=== PATIENT | male | born 1950 | race Caucasian/White ===

== ENCOUNTER 2016-06-16 12:24 | Emergency (ER) | payer OTHER ==
[2016-06-16 13:05] VITALS: BP 127/71; PULSE 62; TEMP 98.1; BMI 33.9
--- NOTE | 2016-06-16 13:25 | PDOC ---
History of Present Illness - General Chief Complaint: Non EmpBld/Body Flud Exposure Stated Complaint: EXPOSURE TO TB Time Seen by Provider: 06/16/16 13:05 History Source: Patient - History of Present Illness Associated Symptoms: denies: cough, fever/chills, shortness of breath Past History - Past Medical History Allergies/Adverse Reactions: Allergies Allergy/AdvReac Type Severity Reaction Status Date / Time No Known Allergies Allergy Verified 06/16/16 13:02 Cardiac Disorders: Yes Diabetes: Yes HTN: Yes - Surgical History Cardiac Surgery: Yes (STENT X 2) - Immunization History Immunization Up to Date: Yes - Psycho/Social/Smoking Cessation Hx Anxiety: No Suicidal Ideation: No Smoking History: Never smoked Have you smoked in the past 12 months: No Information on smoking cessation initiated: No Hx Alcohol Use: No Drug/Substance Use Hx: No Substance Use Type: None Review of Systems - Review of Systems Constitutional: No: Chills, Fever, Night Sweats, Unexplained wgt Loss Respiratory: No: Cough, Shortness of Breath, Wheezing Cardiac (ROS): No: Chest Pain *Physical Exam - Vital Signs Last Vital Signs Temp Pulse Resp BP Pulse Ox 98.1 F 62 20 127/71 97 06/16/16 13:02 06/16/16 13:02 06/16/16 13:02 06/16/16 13:02 06/16/16 13:02 - Physical Exam General Appearance: Yes: Appropriately Dressed. No: Apparent Distress HEENT: positive: Normal Voice Neck: positive: Supple. negative: Lymphadenopathy (R), Lymphadenopathy (L) Respiratory/Chest: positive: Lungs Clear, Normal Breath Sounds. negative: Respiratory Distress Cardiovascular: positive: Regular Rate, S1, S2 Integumentary: positive: Dry, Warm Neurologic: positive: Fully Oriented, Alert, Normal Mood/Affect ED Treatment Course - RADIOLOGY Radiology Studies Ordered: Category Date Time Status CHEST PA & LAT [RAD] Stat Radiology 06/16/16 13:18 Ordered Medical Decision Making - Medical Decision Making 06/16/16 13:22 65-year-old male here for TB testing as was exposed to coworker who was recently diagnosed with TB as per patient. Denies any symptoms at this time, no cough, hemoptysis, shortness of breath, night sweats or weight loss. States his other coworkers are also pts today as they have also been exposed. Pt well tano and stable w/ unremarkable exam. Pt informed that he will need PPD testing which is not routinely performed in ED and that he will need to follow up with his PMD for PPD placement and subsequent reading. Will do CXR today r/o active disease. 06/16/16 13:25 06/16/16 13:56 XR negative. Pt discharged with instructions to immediately f/u with PMD for PPD testing *DC/Admit/Observation/Transfer Diagnosis at time of Disposition: Exposure to TB - Discharge Dispostion Disposition: HOME Condition at time of disposition: Good - Referrals Referrals: Felix Hickman MD [Primary Care Provider] - - Patient Instructions Additional Instructions: Please follow up with PMD for PPD testing. Your CXR was negative today - Post Discharge Activity Work/School Note: Back to Work
== END 2016-06-16 14:00 | disposition home or self-care (01) ==
LOC: JERFT 12:24
DX: Z20.1 Contact with and (suspected) exposure to tuberculosis (principal); I10 Essential (primary) hypertension; E11.9 Type 2 diabetes mellitus without complications; Z95.5 Presence of coronary angioplasty implant and graft
CPT/HCPCS: 71020-TC; 99281-25

== ENCOUNTER 2016-07-09 08:11 | Inpatient (IN) | payer OTHER, MEDICARE ==
[2016-07-09 09:03] LABS: URINE APPEARANCE CLEAR; URINE BILIRUBIN NEGATIVE (NEGATIVE); URINE COLOR YELLOW; URINE GLUCOSE (UA) 3+ (NEGATIVE); URINE KETONE 1+ (NEGATIVE); URINE NITRITE POSITIVE (NEGATIVE); URINE UROBILINOGEN 2.0 E.U/dl E.U./dl (0.2-1.0)
[2016-07-09] MEDS ORDERED: SODIUM CHLORIDE 1,000 ML IV STA (09:05)
[2016-07-09 09:07] LABS: URINE BLOOD 2+ (NEGATIVE); URINE LEUK ESTERASE TRACE (NEGATIVE); URINE PROTEIN 1+ (NEGATIVE)
--- NOTE | 2016-07-09 09:07 | PDOC ---
History of Present Illness - General Chief Complaint: Urinary Problem Stated Complaint: TROUBLE URINATING Time Seen by Provider: 07/09/16 08:37 History Source: Patient - History of Present Illness Timing/Duration: reports: constant Past History - Past Medical History Allergies/Adverse Reactions: Allergies Allergy/AdvReac Type Severity Reaction Status Date / Time No Known Allergies Allergy Verified 07/09/16 08:16 Home Medications: Ambulatory Orders Metoprolol Tartrate [Lopressor] 50 mg PO BID 07/09/16 Prasugrel HCl [Effient] 10 mg PO DAILY 07/09/16 Simvastatin [Zocor -] 40 mg PO HS 07/09/16 Sitagliptin Phos/Metformin HCl [Janumet Xr 50-1,000 mg Tablet] 1 each PO DAILY 07/09/16 Cardiac Disorders: Yes (3 stents) Diabetes: Yes HTN: Yes - Surgical History Cardiac Surgery: Yes (STENT X 3) Cholecystectomy: Yes - Immunization History Immunization Up to Date: Yes - Psycho/Social/Smoking Cessation Hx Anxiety: No Suicidal Ideation: No Smoking History: Never smoked Have you smoked in the past 12 months: No Information on smoking cessation initiated: No Hx Alcohol Use: No Drug/Substance Use Hx: No Substance Use Type: None Review of Systems - Review of Systems Constitutional: No: Chills, Fever : Yes: Dysuria. No: Flank Pain, Hematuria *Physical Exam - Vital Signs Last Vital Signs Temp Pulse Resp BP Pulse Ox 98.2 F 82 18 161/101 96 07/09/16 08:14 07/09/16 08:14 07/09/16 08:14 07/09/16 08:14 07/09/16 08:14 - Physical Exam General Appearance: Yes: Appropriately Dressed. No: Apparent Distress HEENT: positive: Normal Voice Neck: positive: Supple Respiratory/Chest: negative: Respiratory Distress Gastrointestinal/Abdominal: positive: Soft. negative: Tender Musculoskeletal: negative: CVA Tenderness Integumentary: positive: Dry, Warm Neurologic: positive: Fully Oriented, Alert, Normal Mood/Affect ED Treatment Course - LABORATORY CBC & Chemistry Diagram: 07/09/16 08:54 07/09/16 08:54 Medical Decision Making - Medical Decision Making 07/09/16 09:06 65-year-old male, history of [id number] diabetes, CAD with 3 stents, here with dysuria 3 days. Patient states every time he urinates it pillai. Pt also reports subjective fever. No hematuria, n/v. No hematuria, flank pain, nausea, vomiting, fever or chills. No history of renal stones. No history of UTI in the past. See exam Dysuria R/o uti, less likely renal stone Stable Exam unremarkable -ua/cx pending 07/09/16 09:49 07/09/16 10:17 Wbc 22 w/ +uti on labs. Dose of ceftriaxone in progress. Will discuss dispo w/ ED attg 07/09/16 12:23 CT neg for pyelo. Case d/w hospitalist and pt admitted to obs *DC/Admit/Observation/Transfer Diagnosis at time of Disposition: UTI (urinary tract infection) Qualifiers: Urinary tract infection type: acute cystitis Hematuria presence: without hematuria Qualified Code(s): N30.00 - Acute cystitis without hematuria - Discharge Dispostion Disposition: HOME Condition at time of disposition: Stable Admit: Yes - Referrals Referrals: Felix Hickman MD [Primary Care Provider] -
[2016-07-09 09:10] LABS: URINE BACTERIA MANY /hpf (NONE SEEN); URINE MUCUS RARE; URINE RBC 3 /hpf (0-3); URINE WBC 23 /hpf (3-5); YEAST FEW
[2016-07-09] MEDS ORDERED: CEFTRIAXONE 1 GM in DEXTROSE 5%-WATER - 50 ML IVPB ONE (09:15)
[2016-07-09 09:16] LABS: MCH 28.8 pg (25.7-33.7); MCHC 33.7 g/dl (32.0-35.9); MEAN CELL VOLUME 85.5 fl (80-96); MEAN PLT VOLUME 9.9 fl (7.5-11.1); PLATELET COUNT 146 K/MM3 (134-434); WHITE BLOOD COUNT 22.5 K/mm3 (4.0-10.0)
[2016-07-09] MEDS ORDERED: CEFTRIAXONE 50 ML ONE (09:18)
[2016-07-09 09:41] LABS: ALBUMIN 3.6 g/dl (3.4-5.0); ALK PHOS 103 U/L (45-117); ANION GAP 12 (8-16); BILIRUBIN,TOTAL 1.8 mg/dL (0.2-1.0); CALCIUM 8.7 mg/dL (8.5-10.1); CO2 24 mmol/L (21-32); CREATININE 1.1 mg/dL (0.7-1.3); GLUCOSE,RANDOM 264 mg/dL (74-106); SGOT/AST 16 U/L (15-37); SGPT/ALT 22 U/L (12-78); TOT PROT 7.2 g/dl (6.4-8.2)
[2016-07-09] MEDS ORDERED: PATIENT'S OWN MEDICATION (NON-FORMULARY) (Sitagliptin Phos/Metformin Hcl [Janumet Xr 50-1, PO SCH (12:30)
[2016-07-09] MEDS ORDERED: METOCLOPRAMIDE HCL INJECTION 10 MG/2 ML VIAL IVPB ONE (12:49)
--- NOTE | 2016-07-09 13:13 | ED.PROV ---
Physicial Exam I saw and examined the patient. - Vital Signs Last Vital Signs Temp Pulse Resp BP Pulse Ox 98.2 F 82 18 161/101 96 07/09/16 08:14 07/09/16 08:14 07/09/16 08:14 07/09/16 08:14 07/09/16 08:14 Critical Care Time/MDM Note - Medical Decision Making Note: 07/09/16 13:12 The patient was seen and evaluated in conjunction with SHASTA Edward under my direct supervision, ancillary studies were reviewed. I independently interviewed and evaluated the patient and I agree with the plan as outlined by SHASTA Edward 07/09/16 18:27
[2016-07-09] MEDS ORDERED: METOCLOPRAMIDE HCL INJECTION 10 MG/2 ML VIAL ONE (13:25)
--- NOTE | 2016-07-09 13:27 | HP ---
CHIEF COMPLAINT: PCP: HISTORY OF PRESENT ILLNESS: 65 year old male presented to the emergency department c/o 3 day history of dysuria, fever and chills. Pain 7/10 during urination . No prior episodes of pain like this in the past. No prior history of UTI or prostate problems. Recent Travel:NO PAST MEDICAL HISTORY: DM HTN HYperlipidemia CAD - most recent cath 4 years ago, stents were placed. No report available . PAST SURGICAL HISTORY: Cholecystectomy Screening colonoscopy Social History: Smoking:NO Alcohol:NO Drugs: NO Family History: Father from [place] at the age of 52 Allergies No Known Allergies Allergy (Verified 07/09/16 08:16) HOME MEDICATIONS: Home Medications Medication Instructions Recorded Metoprolol Tartrate [Lopressor] 50 mg PO BID 07/09/16 Prasugrel HCl [Effient] 10 mg PO DAILY 07/09/16 Simvastatin [Zocor -] 40 mg PO HS 07/09/16 Sitagliptin Phos/Metformin HCl 1 each PO DAILY 07/09/16 [Janumet Xr 50-1,000 mg Tablet] REVIEW OF SYSTEMS CONSTITUTIONAL: Absent: loss of appetite, weight change HEENT: Absent: rhinorrhea, nasal congestion, throat pain, throat swelling, difficulty swallowing, mouth swelling, ear pain, eye pain, visual changes CARDIOVASCULAR: Absent: chest pain, syncope, palpitations, irregular heart rate, lightheadedness , peripheral edema RESPIRATORY: Absent: cough, shortness of breath, dyspnea with exertion, orthopnea, wheezing, stridor, hemoptysis GASTROINTESTINAL: Absent: abdominal pain, abdominal distension, nausea, vomiting, diarrhea, constipation, melena, hematochezia GENITOURINARY: PRESENT : dysuria, frequency, urgency, hesitancy, MUSCULOSKELETAL: Absent: myalgia, arthralgia, joint swelling, back pain, neck pain SKIN: Absent: rash, itching, pallor HEMATOLOGIC/IMMUNOLOGIC: Absent: easy bleeding, easy bruising, lymphadenopathy, frequent infections ENDOCRINE: Absent: unexplained weight gain, unexplained weight loss, heat intolerance, cold intolerance NEUROLOGIC: Absent: headache, focal weakness or paresthesias, dizziness, unsteady gait, seizure, mental status changes, bladder or bowel incontinence PSYCHIATRIC: Absent: anxiety, depression, suicidal or homicidal ideation, hallucinations. PHYSICAL EXAMINATION Vital Signs - 24 hr 07/09/16 08:14 Temperature 98.2 F Pulse Rate 82 Respiratory 18 Rate Blood Pressure 161/101 O2 Sat by Pulse 96 Oximetry (%) GENERAL: Awake, alert, and fully oriented, in no acute distress. HEAD: Normal with no signs of trauma. EYES: Pupils equal, round and reactive to light, extraocular movements intact, sclera anicteric, conjunctiva clear. No lid lag. EARS, NOSE, THROAT: Ears normal, nares patent. Moist mucous membranes. NECK: Normal range of motion, supple without lymphadenopathy, JVD, or masses. LUNGS: Breath sounds equal, clear to auscultation bilaterally. No wheezes, and no crackles. No accessory muscle use. HEART: Regular rate and rhythm, normal S1 and S2 without murmur, rub or gallop. ABDOMEN: Soft, nontender, not distended, normoactive bowel sounds, no guarding, no rebound, no masses. MUSCULOSKELETAL: No CVA tenderness. UPPER EXTREMITIES: 2+ pulses, warm, well-perfused. No cyanosis. LOWER EXTREMITIES: 2+ pulses, warm, well-perfused. No calf tenderness. No peripheral edema. NEUROLOGICAL: Cranial nerves II-XII intact. Normal speech. PSYCHIATRIC: Cooperative. Good eye contact. Appropriate mood and affect. SKIN: Warm, dry, normal turgor, no rashes or lesions noted. Laboratory Results - last 24 hr 07/09/16 07/09/16 07/09/16 08:26 08:54 08:54 WBC 22.5 H RBC 5.32 Hgb 15.4 Hct 45.5 MCV 85.5 MCHC 33.7 RDW 13.0 Plt Count 146 MPV 9.9 Neutrophils % Tag Writer Lymphocytes % Tag Writer Monocytes % Tag Writer Eosinophils % Tag Writer Basophils % Tag Writer Sodium 134 L Potassium 3.6 Chloride 98 Carbon Dioxide 24 Anion Gap 12 BUN 12 Creatinine 1.1 Creat Clearance w eGFR > 60 Random Glucose 264 H Calcium 8.7 Total Bilirubin 1.8 H AST 16 ALT 22 Alkaline Phosphatase 103 Total Protein 7.2 Albumin 3.6 Urine Color Yellow Urine Appearance Clear Urine pH 5.0 Ur Specific [place] 1.025 Urine Protein 1+ H Urine Glucose (UA) 3+ H Urine Ketones 1+ H Urine Blood 2+ H Urine Nitrite Positive Urine Bilirubin Negative Urine Urobilinogen 2.0 e.u/dl Ur Leukocyte Esterase Trace H Urine RBC 3 Urine WBC 23 Urine Bacteria Many Urine Mucus Rare Urine Yeast Few CT abdomen showed no evidence of hydronephrosis or nephrolithiasis. ASSESSMENT/PLAN: 1. Acute cystitis- first episode. CT is negative for nephrolithiasis. Denies history of BPH. - IV rocephine - urine culture - IVF - check for postvoid residual / bladder scan 2. Suspected sepsis 2/ #1 3. Uncontrolled DM- -Insulin SS -Monitor BG - HB A1C 4. Mildly elevated bilirubin level - will repeat 5. Uncontrolled HTN - - reinstate home meds - stat dose of metoprolol - hydralazine prn for sbp > 165 DBP > 90 6. DVT PPX- Lovenox Visit type - Emergency Visit Emergency Visit: Yes ED Registration Date: 07/10/16 Care time: The patient presented to the Emergency Department on the above date and was hospitalized for further evaluation of their emergent condition. - New Patient This patient is new to me today: Yes Date on this admission: 08/01/16 - Critical Care Critical Care patient: No
[2016-07-09] MEDS ORDERED: ACETAMINOPHEN 325 MG TABLET (FP) ONE (13:35)
[2016-07-09] MEDS ORDERED: ACETAMINOPHEN 325 MG TABLET (FP) PO ONE (13:35)
[2016-07-09] MEDS: SODIUM CHLORIDE 1,000 ML IV SCH ×2 (13:44→21:42)
[2016-07-09 14:00] VITALS: BMI 34.1
[2016-07-09] MEDS ORDERED: METOPROLOL SUCCINATE 25 MG TAB.SR.24H (FP) PO STA (14:29)
[2016-07-09] MEDS ORDERED: hydrALAZINE HCL 20 MG/ML VIAL IVPUSH PRN (14:31)
[2016-07-09] MEDS ORDERED: METOPROLOL TARTRATE 25 MG TABLET (FP) PO ONE (15:15)
[2016-07-09] MEDS: INSULIN SLIDING SCALE (NOVOLOG) 1 VIAL SQ SCH (17:26)
[2016-07-09] MEDS: ACETAMINOPHEN 325 MG TABLET (FP) PO PRN (18:57)
[2016-07-09] MEDS: PHENAZOPYRIDINE HCL 100 MG TABLET (FP) PO SCH (18:58)
[2016-07-09] MEDS: ATORVASTATIN CA 20 MG TABLET (FP) PO SCH (21:39)
[2016-07-09] MEDS: METOPROLOL TARTRATE 50 MG TABLET (FP) PO SCH (21:39)
--- NOTE | 2016-07-09 23:58 | HOSP ---
Subjective - Review of Symptoms Events since last encounter: RN called to inform that patient has post void urine is > 300 Patient seen and examined Denies pain, sob , chest pain , nausea vomiting 07/09/16 07/09/16 07/09/16 18:00 20:27 21:42 Temperature 100.0 F H 98.7 F 99.6 F Pulse Rate 88 72 68 Pulse Rate [ Right] Respiratory 18 16 18 Rate Blood Pressure 142/85 139/73 137/76 Blood Pressure [Right Arm] O2 Sat by Pulse Oximetry (%) CVS s1s2 normal chest b/l air entry present abd : soft, non tender, supra pubic area dull to percuss. Bladder palpable. plan ; patient catheterized ( post catheterization 400 ml urine came stat ) start flomax give 200ml of bolus and continue with 100ml/hr continue with antibiotics. Physical Examination Vital Signs: Vital Signs Temperature 99.6 F 07/09/16 21:42 Pulse Rate 68 07/09/16 21:42 Respiratory Rate 18 07/09/16 21:42 Blood Pressure 137/76 07/09/16 21:42 O2 Sat by Pulse Oximetry (%) 96 07/09/16 13:35 Visit type - Emergency Visit Emergency Visit: Yes ED Registration Date: 07/09/16 Care time: The patient presented to the Emergency Department on the above date and was hospitalized for further evaluation of their emergent condition. - New Patient This patient is new to me today: Yes Date on this admission: 07/09/16 - Critical Care Critical Care patient: No
[2016-07-09] MEDS ORDERED: SODIUM CHLORIDE 250 ML IV STA (23:59)
[2016-07-10] MEDS ORDERED: ACETAMINOPHEN 325 MG TABLET (FP) PO ONE
[2016-07-10] MEDS ORDERED: CEFTRIAXONE 1 GM in DEXTROSE 5%-WATER - 50 ML IVPB ONE (00:02)
[2016-07-10] MEDS ORDERED: cefTRIAXone 1 GM/50 ML BAG (PRE-DOCKED) IVPB ONE (00:15)
[2016-07-10] MEDS: TAMSULOSIN HCL 0.4 MG CAP.ER.24H (FP) PO SCH ×2 (00:23→08:19)
[2016-07-10] MEDS: SODIUM CHLORIDE 1,000 ML IV SCH ×2 (06:13→16:06)
[2016-07-10] MEDS: INSULIN SLIDING SCALE (NOVOLOG) 1 VIAL SQ SCH ×3 (06:14→17:17)
[2016-07-10] MEDS: sitaGLIPtin PHOSPHATE 50 MG TABLET PO SCH (06:14)
[2016-07-10] MEDS: ACETAMINOPHEN 325 MG TABLET (FP) PO PRN ×3 (08:04→23:43)
[2016-07-10 08:48] LABS: BASOPHIL 0.2 % (0-2.0); EOSINOPHIL 0.8 % (0-4.5); MCHC 33.7 g/dl (32.0-35.9); MEAN CELL VOLUME 86.1 fl (80-96); MEAN PLT VOLUME 10.2 fl (7.5-11.1); NEUTROPHILS 83.3 % (42.8-82.8); PLATELET COUNT 133 K/MM3 (134-434); RDW 12.8 % (11.9-15.9); WHITE BLOOD COUNT 12.9 K/mm3 (4.0-10.0)
[2016-07-10] MEDS ORDERED: PT OWN MED DRAWER 7, Y5N ONE (09:12)
[2016-07-10] MEDS: PHENAZOPYRIDINE HCL 100 MG TABLET (FP) PO SCH ×3 (09:14→18:41)
[2016-07-10] MEDS: METOPROLOL TARTRATE 50 MG TABLET (FP) PO SCH ×2 (09:14→22:08)
[2016-07-10] MEDS: PRASUGREL HCL 10 MG TAB PO SCH (09:15)
[2016-07-10] MEDS: cefTRIAXone 2 GM/100 ML BAG (PRE-DOCKED) IVPB SCH (09:16)
[2016-07-10] MEDS ORDERED: INSULIN (NOVOLOG) ASPART 100 UNITS/ML 10ML VIAL ONE (11:14)
--- NOTE | 2016-07-10 11:21 | PN ---
Physical Exam: SUBJECTIVE: Patient seen and examined. He complains of pain when he urinates, however he has a [place] catheter which was inserted last night for urinary retention. He denies chills, nausea, flank pain. He denies history of kidney stones, BPH, UTIs. OBJECTIVE: Vital Signs Period Temp Pulse Resp BP Sys/Abbott Pulse Ox Last 24 Hr 98.7 F-100.7 F 67-88 16-20 128-150/64-85 92-96 GENERAL: The patient is awake, alert, and fully oriented, in no acute distress. LUNGS: Breath sounds equal, clear to auscultation bilaterally, no wheezes, no crackles, no accessory muscle use. HEART: Regular rate and rhythm, S1, S2 without murmur, rub or gallop. ABDOMEN: Soft, nontender, nondistended, normoactive bowel sounds, no guarding, no rebound, no hepatosplenomegaly, no masses. EXTREMITIES: 2+ pulses, warm, well-perfused, no edema. Laboratory Results - last 24 hr 07/09/16 07/09/16 07/09/16 12:35 17:14 20:40 WBC RBC Hgb Hct MCV MCHC RDW Plt Count MPV Neutrophils % Lymphocytes % Monocytes % Eosinophils % Basophils % POC Glucometer 322 Hemoglobin A1c % 9.4 H Lactic Acid 1.439 07/10/16 07/10/16 07/10/16 05:48 07:15 10:46 WBC 12.9 H D RBC 4.52 Hgb 13.1 D Hct 38.9 MCV 86.1 MCHC 33.7 RDW 12.8 Plt Count 133 L MPV 10.2 Neutrophils % 83.3 H Lymphocytes % 8.1 Monocytes % 7.6 Eosinophils % 0.8 Basophils % 0.2 POC Glucometer 212 298 Hemoglobin A1c % Lactic Acid Active Medications Generic Name Dose Route Start Last Admin Trade Name Freq PRN Reason Stop Dose Admin Acetaminophen 650 mg 07/09/16 12:51 07/10/16 08:04 Tylenol - PO 650 mg Q6H PRN Administration MODERATE PAIN Atorvastatin Calcium 20 mg 07/09/16 22:00 07/09/16 21:39 Lipitor - PO 20 mg HS ROC Administration Ceftriaxone Sodium 2 gm 07/10/16 10:00 07/10/16 09:16 Rocephin 2gm Ivpb (Pre-Docked) IVPB 2 gm DAILY ROC Administration Protocol Hydralazine HCl 10 mg 07/09/16 14:31 Apresoline Injection - IVPUSH Q8H PRN HYPERTENSION Sodium Chloride 1,000 mls @ 100 mls/hr 07/09/16 12:45 07/10/16 06:13 Normal Saline - IV 100 mls/hr ASDIR ROC Administration Insulin Aspart 1 vial 07/09/16 16:30 07/10/16 11:19 Novolog Vial Sliding Scale - SQ 4 units TIDAC ROC Administration Protocol Metformin HCl 1,000 mg 07/10/16 07:00 07/10/16 06:14 Glucophage Xr - PO 1,000 mg DAILY@0700 ROC Administration Metoprolol Tartrate 50 mg 07/09/16 22:00 07/10/16 09:14 Lopressor - PO 50 mg BID ROC Administration Phenazopyridine HCl 100 mg 07/09/16 18:45 07/10/16 09:14 Pyridium - PO 100 mg PC ROC Administration Prasugrel 10 mg 07/10/16 10:00 07/10/16 09:15 Effient - PO 10 mg DAILY ROC Administration Sitagliptin Phosphate 50 mg 07/10/16 07:00 07/10/16 06:14 Januvia - PO 50 mg DAILY@0700 ROC Administration Tamsulosin HCl 0.4 mg 07/10/16 00:15 07/10/16 08:19 Flomax - PO 0.4 mg DAILY@0830 [facility] Administration ASSESSMENT/PLAN: This is a 65-year-old man with a history of CAD, type 2 DM, HTN, hyperlipidemia who presented with 3 days of fever, chills and dysuria. 1. Acute cystitis - Continue Rocephin, Pyridium, IV fluid - Follow-up urine culture 2. Urinary retention - Maintain [place] catheter - Continue Flomax - Urology consult 3. Uncontrolled type 2 diabetes mellitus - HgbA1c is 9.4 - Continue Metformin, Januvia, Novolog sliding scale 4. Hypertension, uncontrolled - Continue Lopressor 5. Hyperlipidemia - Continue Lipitor 6. CAD, history of stents - Continue Lopressor, Lipitor, Effient Problem List - Problems (1) Urinary retention Code(s): R33.9 - RETENTION OF URINE, UNSPECIFIED (2) CAD (coronary artery disease) Code(s): I25.10 - ATHSCL HEART DISEASE OF [place] CORONARY ARTERY W/O ANG PCTRS (3) Hyperlipidemia Code(s): E78.5 - HYPERLIPIDEMIA, UNSPECIFIED (4) Hypertension Code(s): I10 - ESSENTIAL (PRIMARY) HYPERTENSION (5) Type 2 diabetes mellitus Code(s): E11.9 - TYPE 2 DIABETES MELLITUS WITHOUT COMPLICATIONS Visit type - Emergency Visit Emergency Visit: Yes ED Registration Date: 07/10/16 Care time: The patient presented to the Emergency Department on the above date and was hospitalized for further evaluation of their emergent condition. - New Patient This patient is new to me today: Yes Date on this admission: 07/10/16 - Critical Care Critical Care patient: No - Discharge Referral Referred to [facility] Med P.C.: No
--- NOTE | 2016-07-10 15:56 | CONSULT ---
Consult Consult Specialty:: infectious diseases Reason for Consultation:: sepsis,uti - History of Present Illness Chief Complaint: not able to pass urine History of Present Illness: 65 year old male presented to the emergency department c/o 3 day history of dysuria, fever and chills. Pain 7/10 during urination . patient mentions that he was not hollie to pass urine properly for couple of days and then he had fever,denies hematuria or any other issues he had a prostate check up about 5 yrs back and he had everything normal patient currently has been placed on foleys catheter patient spiked to high grade fever and now has urine growing organism - History Source History Provided By: Patient, Family Member Limitations to Obtaining History: No Limitations - Alcohol/Substance Use Hx Alcohol Use: No - Smoking History Smoking history: Never smoked Have you smoked in the past 12 months: No Home Medications - Allergies Allergies/Adverse Reactions: Allergies Allergy/AdvReac Type Severity Reaction Status Date / Time No Known Allergies Allergy Verified 07/09/16 08:16 - Home Medications Home Medications: Ambulatory Orders Metoprolol Tartrate [Lopressor] 50 mg PO BID 07/09/16 Prasugrel HCl [Effient] 10 mg PO DAILY 07/09/16 Simvastatin [Zocor -] 40 mg PO HS 07/09/16 Sitagliptin Phos/Metformin HCl [Janumet Xr 50-1,000 mg Tablet] 1 each PO DAILY 07/09/16 Review of Systems - Review of Systems Constitutional: reports: Chills, Fever Eyes: reports: No Symptoms HENT: reports: No Symptoms Neck: reports: No Symptoms Cardiovascular: reports: No Symptoms Respiratory: reports: No Symptoms Gastrointestinal: reports: No Symptoms Genitourinary: reports: Burning, Dysuria, Urgency Musculoskeletal: reports: No Symptoms Integumentary: reports: No Symptoms Neurological: reports: No Symptoms Endocrine: reports: No Symptoms Hematology/Lymphatic: reports: No Symptoms Psychiatric: reports: No Symptoms Physical Exam Vital Signs: Vital Signs Temperature 101.2 F H 07/10/16 15:35 Pulse Rate 69 07/10/16 15:35 Respiratory Rate 20 07/10/16 15:35 Blood Pressure 133/77 07/10/16 15:35 O2 Sat by Pulse Oximetry (%) 94 L 07/10/16 09:00 Constitutional: Yes: Well Nourished, Obese Eyes: Yes: Conjunctiva Clear HENT: Yes: Atraumatic, Normocephalic Neck: Yes: Supple, Trachea Midline Cardiovascular: Yes: Regular Rate and Rhythm Respiratory: Yes: Regular, CTA Bilaterally Gastrointestinal: Yes: Normal Bowel Sounds, Soft Renal/: Yes: [place] Present, Incontinence Musculoskeletal: Yes: WNL Extremities: Yes: WNL Integumentary: Yes: WNL Neurological: Yes: Alert, Oriented Psychiatric: Yes: Alert, Oriented Imaging - Results Cat Scan: Report Reviewed, Image Reviewed Assessment/Plan after looking at patients history i have a very strong suspicion that the infection is coming from prostate and he might have prostatitis also. urology has evaluated the patient iman wait to see what urology says sepsis due to uti prostatitis urinary retention fever leukocytosis plan hydration will start patient on zosyn for now if patient contiues to spike fever will change to ertapenam close monitoring monitor wbc
[2016-07-10] MEDS: PIPERACILLIN/TAZOB 3.375 GM 50 ML IVPB SCH (17:18)
[2016-07-10] MEDS: ATORVASTATIN CA 20 MG TABLET (FP) PO SCH (22:08)
[2016-07-11] MEDS: PIPERACILLIN/TAZOB 3.375 GM 50 ML IVPB SCH ×2 (02:33→09:10)
[2016-07-11] MEDS: INSULIN SLIDING SCALE (NOVOLOG) 1 VIAL SQ SCH ×3 (06:24→17:48)
[2016-07-11] MEDS: sitaGLIPtin PHOSPHATE 50 MG TABLET PO SCH (06:24)
[2016-07-11] MEDS ORDERED: PT OWN MED DRAWER 7, Y5N ONE ×2 (07:48→09:07)
[2016-07-11] MEDS: ACETAMINOPHEN 325 MG TABLET (FP) PO PRN (08:26)
[2016-07-11] MEDS: TAMSULOSIN HCL 0.4 MG CAP.ER.24H (FP) PO SCH (08:28)
[2016-07-11] MEDS: PHENAZOPYRIDINE HCL 100 MG TABLET (FP) PO SCH ×3 (08:29→17:49)
[2016-07-11 08:39] LABS: BASOPHIL 0.4 % (0-2.0); MCH 29.2 pg (25.7-33.7); MCHC 34.1 g/dl (32.0-35.9); MEAN CELL VOLUME 85.7 fl (80-96); PLATELET COUNT 142 K/MM3 (134-434); RDW 12.9 % (11.9-15.9); WHITE BLOOD COUNT 8.1 K/mm3 (4.0-10.0)
[2016-07-11] MEDS: cefTRIAXone 2 GM/100 ML BAG (PRE-DOCKED) IVPB SCH (09:02)
[2016-07-11] MEDS: METOPROLOL TARTRATE 50 MG TABLET (FP) PO SCH ×2 (09:03→22:15)
[2016-07-11 09:05] LABS: CALCIUM 8.2 mg/dL (8.5-10.1)
--- NOTE | 2016-07-11 09:06 | CONSULT ---
Consult Consult Specialty:: urology Referred by:: medicine Reason for Consultation:: urinary retention - History of Present Illness Chief Complaint: urinary retention History of Present Illness: patient is a 65 yo male with poorly controlled diabetes who has been having worsening nocturia over several months. He was admitted with a UTI and was noted to have a large post void residual of 300 on US. [place] cath was placed. He denies prior history and no family history - History Source History Provided By: Patient Limitations to Obtaining History: No Limitations - Past Medical History Renal/: Yes: UTI - Alcohol/Substance Use Hx Alcohol Use: No - Smoking History Smoking history: Never smoked Have you smoked in the past 12 months: No Home Medications - Allergies Allergies/Adverse Reactions: Allergies Allergy/AdvReac Type Severity Reaction Status Date / Time No Known Allergies Allergy Verified 07/09/16 08:16 - Home Medications Home Medications: Ambulatory Orders Metoprolol Tartrate [Lopressor] 50 mg PO BID 07/09/16 Prasugrel HCl [Effient] 10 mg PO DAILY 07/09/16 Simvastatin [Zocor -] 40 mg PO HS 07/09/16 Sitagliptin Phos/Metformin HCl [Janumet Xr 50-1,000 mg Tablet] 1 each PO DAILY 07/09/16 Review of Systems - Review of Systems Genitourinary: reports: Burning, Frequency. denies: Flank Pain, Hematuria, Incontinence Physical Exam Vital Signs: Vital Signs Temperature 100.3 F H 07/11/16 06:00 Pulse Rate 71 07/11/16 06:00 Respiratory Rate 22 07/11/16 06:00 Blood Pressure 147/63 07/11/16 06:00 O2 Sat by Pulse Oximetry (%) 94 L 07/10/16 20:00 Gastrointestinal: Yes: WNL, Normal Bowel Sounds Renal/: Yes: [place] Present. No: Bladder Distention, CVA Tenderness - Left, CVA Tenderness - Right, Hematuria, Incontinence Labs: CBC, BMP 07/11/16 07:15 Problem List - Problems (1) Urinary retention Assessment/Plan: patient with high PVR and UTI. Flomax was started, recommend trial of void on . Continue flomax as outpatient. Likely some neurogenic component to his bladder dysfunction. Recommend better diabetic control. Thank you for this referral Code(s): R33.9 - RETENTION OF URINE, UNSPECIFIED
[2016-07-11] MEDS: PRASUGREL HCL 10 MG TAB PO SCH (09:09)
[2016-07-11 09:12] LABS: ALBUMIN 2.9 g/dl (3.4-5.0); BILIRUBIN,DIRECT 0.3 mg/dL (0.0-0.2); BILIRUBIN,TOTAL 0.6 mg/dL (0.2-1.0); CREATININE 0.9 mg/dL (0.7-1.3); TOT PROT 6.1 g/dl (6.4-8.2)
[2016-07-11] MEDS: IBUPROFEN 400 MG TABLET (FP) PO PRN ×2 (14:43→22:15)
[2016-07-11] MEDS: SODIUM CHLORIDE 1,000 ML IV SCH ×2 (14:53→14:55)
--- NOTE | 2016-07-11 15:11 | PN ---
Progress Note, Physician History of Present Illness: patient not feeling well still spiking hig fevers inspite of being on zosyn patient looks flushed - Current Medication List Current Medications: Active Medications Atorvastatin Calcium (Lipitor -) 20 mg PO HS [facility] Last Admin: 07/10/16 22:08 Dose: 20 mg Hydralazine HCl (Apresoline Injection -) 10 mg IVPUSH Q8H PRN PRN Reason: HYPERTENSION Sodium Chloride (Normal Saline -) 1,000 mls @ 100 mls/hr IV ASDIR [facility] Last Admin: 07/11/16 14:55 Dose: Not Given Ertapenem 1 gm/ Sodium (Chloride) 50 mls @ 50 mls/hr IVPB DAILY [facility] PRN Reason: Protocol Ibuprofen (Motrin -) 400 mg PO Q6H PRN PRN Reason: PAIN Last Admin: 07/11/16 14:43 Dose: 400 mg Insulin Aspart (Novolog Vial Sliding Scale -) 1 vial SQ TIDAC [facility] PRN Reason: Protocol Last Admin: 07/11/16 11:30 Dose: 4 units Metformin HCl (Glucophage Xr -) 1,000 mg PO BID [facility] Metoprolol Tartrate (Lopressor -) 50 mg PO BID [facility] Last Admin: 07/11/16 09:03 Dose: 50 mg Phenazopyridine HCl (Pyridium -) 100 mg PO [facility] Last Admin: 07/11/16 12:57 Dose: 100 mg Prasugrel (Effient -) 10 mg PO DAILY [facility] Last Admin: 07/11/16 09:09 Dose: 10 mg Sitagliptin Phosphate (Januvia -) 50 mg PO DAILY@0700 [facility] Last Admin: 07/11/16 06:24 Dose: 50 mg Tamsulosin HCl (Flomax -) 0.4 mg PO DAILY@0830 [facility] Last Admin: 07/11/16 08:28 Dose: 0.4 mg - Objective Vital Signs: Vital Signs Temperature 100.5 F H 07/11/16 10:00 Pulse Rate 72 07/11/16 10:00 Respiratory Rate 20 07/11/16 10:00 Blood Pressure 146/100 07/11/16 10:00 O2 Sat by Pulse Oximetry (%) 94 L 07/10/16 20:00 Constitutional: Yes: Mild Distress Cardiovascular: Yes: Regular Rate and Rhythm Respiratory: Yes: Regular, CTA Bilaterally Gastrointestinal: Yes: Normal Bowel Sounds, Soft Musculoskeletal: Yes: WNL Extremities: Yes: WNL Neurological: Yes: Alert, Oriented Psychiatric: Yes: Alert Labs: CBC, BMP 07/11/16 07:15 07/11/16 07:15 Assessment/Plan patient looking more sicker I am worried that the patient has probably ESBL and patient is breaking through zosyn patient spiked to 101.5 i am going to change abx sepsis due to uti prostatitis urinary retention fever leukocytosis plan hydration changed abx to ertapenam monitor very closely patient can become septic
--- NOTE | 2016-07-11 18:18 | PN ---
Physical Exam: SUBJECTIVE: Patient seen and examined. He is complaining of fever, chills. He denies abdominal pain now, no dysuria, urgency, frequency, diarrhea, nausea, vomiting, dizziness. OBJECTIVE: Vital Signs Period Temp Pulse Resp BP Sys/Abbott Pulse Ox Last 24 Hr 98.1 F-100.5 F 63-72 20-22 128-148/63-100 94 GENERAL: The patient is awake, alert, and fully oriented, in no acute distress. HEAD: Normal with no signs of trauma. EYES:extraocular movements intact, sclera anicteric, conjunctiva clear. ENT: oropharynx clear without exudates, moist mucous membranes. NECK: Trachea midline, full range of motion, supple. LUNGS: clear to auscultation bilaterally, no wheezes, no crackles, no accessory muscle use. HEART: Regular rate and rhythm, S1, S2 without murmur, rub or gallop. ABDOMEN: Obese, soft, nontender, nondistended, normoactive bowel sounds, no guarding, no rebound, no hepatosplenomegaly, no masses. EXTREMITIES: no edema. NEUROLOGICAL: Normal speech, no facial asymmetry, gait not observed. PSYCH: Normal mood, normal affect. SKIN: Warm, dry, normal turgor, no rashes or lesions noted Laboratory Results - last 24 hr 07/11/16 07/11/16 07/11/16 06:15 07:15 07:15 WBC 8.1 D RBC 4.46 Hgb 13.0 Hct 38.2 MCV 85.7 MCHC 34.1 RDW 12.9 Plt Count 142 MPV 10.0 Neutrophils % 76.0 Lymphocytes % 12.2 D Monocytes % 9.4 Eosinophils % 2.0 D Basophils % 0.4 Sodium 136 Potassium 3.6 Chloride 102 Carbon Dioxide 24 Anion Gap 10 BUN 10 Creatinine 0.9 POC Glucometer 206 Random Glucose 223 H Calcium 8.2 L Total Bilirubin 0.6 D Direct Bilirubin 0.3 H AST 26 D ALT 36 D Alkaline Phosphatase 111 Total Protein 6.1 L Albumin 2.9 L 07/11/16 07/11/16 10:58 17:12 WBC RBC Hgb Hct MCV MCHC RDW Plt Count MPV Neutrophils % Lymphocytes % Monocytes % Eosinophils % Basophils % Sodium Potassium Chloride Carbon Dioxide Anion Gap BUN Creatinine POC Glucometer 299 218 Random Glucose Calcium Total Bilirubin Direct Bilirubin AST ALT Alkaline Phosphatase Total Protein Albumin Active Medications Generic Name Dose Route Start Last Admin Trade Name Freq PRN Reason Stop Dose Admin Atorvastatin Calcium 20 mg 07/09/16 22:00 07/10/16 22:08 Lipitor - PO 20 mg HS [facility] Administration Hydralazine HCl 10 mg 07/09/16 14:31 Apresoline Injection - IVPUSH Q8H PRN HYPERTENSION Sodium Chloride 1,000 mls @ 100 mls/hr 07/09/16 12:45 07/11/16 14:55 Normal Saline - IV Not Given ASDIR [facility] Ertapenem 1 gm/ Sodium 50 mls @ 50 mls/hr 07/11/16 16:00 Chloride IVPB DAILY [facility] Protocol Ibuprofen 400 mg 07/11/16 14:11 07/11/16 14:43 Motrin - PO 400 mg Q6H PRN Administration PAIN Insulin Aspart 1 vial 07/09/16 16:30 07/11/16 17:48 Novolog Vial Sliding Scale - SQ 2 units TIDAC [facility] Administration Protocol Metformin HCl 1,000 mg 07/11/16 16:30 07/11/16 17:48 Glucophage Xr - PO 1,000 mg BIDAC [facility] Administration Metoprolol Tartrate 50 mg 07/09/16 22:00 07/11/16 09:03 Lopressor - PO 50 mg BID [facility] Administration Phenazopyridine HCl 100 mg 07/09/16 18:45 07/11/16 17:49 Pyridium - PO 100 mg PC [facility] Administration Prasugrel 10 mg 07/10/16 10:00 07/11/16 09:09 Effient - PO 10 mg DAILY [facility] Administration Sitagliptin Phosphate 50 mg 07/10/16 07:00 07/11/16 06:24 Januvia - PO 50 mg DAILY@0700 [facility] Administration Tamsulosin HCl 0.4 mg 07/10/16 00:15 07/11/16 08:28 Flomax - PO 0.4 mg DAILY@0830 [facility] Administration ASSESSMENT/PLAN: This is a 65-year-old man with a history of CAD, type 2 DM, HTN, hyperlipidemia who presented with 3 days of fever, chills and dysuria. Acute cystitis, possible prostatitis -cont Ertapenem, monitor VS for sepsis -cont IVF -cont Pyridium -Urine culture: E.Coli Urinary retention -[place] catheter removed -Continue Flomax -Urology consultation Uncontrolled type 2 diabetes mellitus - HgbA1c is 9.4 - Metformin changed to BID, Januvia changed to BID -cont Novolog sliding scale Hypertension - Continue Lopressor Hyperlipidemia - Continue Lipitor 20 mg HS CAD - Continue Lopressor, Lipitor, Effient F/E/N: NS/no/Regular DVT PPX: -SCDs Disposition: Med-Surg Problem List - Problems (1) UTI (urinary tract infection) Code(s): N39.0 - URINARY TRACT INFECTION, SITE NOT SPECIFIED Qualifiers: Urinary tract infection type: acute cystitis Hematuria presence: without hematuria Qualified Code(s): N30.00 - Acute cystitis without hematuria (2) Urinary retention Code(s): R33.9 - RETENTION OF URINE, UNSPECIFIED (3) CAD (coronary artery disease) Code(s): I25.10 - ATHSCL HEART DISEASE OF [place] CORONARY ARTERY W/O ANG PCTRS (4) Hyperlipidemia Code(s): E78.5 - HYPERLIPIDEMIA, UNSPECIFIED (5) Hypertension Code(s): I10 - ESSENTIAL (PRIMARY) HYPERTENSION (6) Type 2 diabetes mellitus Code(s): E11.9 - TYPE 2 DIABETES MELLITUS WITHOUT COMPLICATIONS Visit type - Emergency Visit Emergency Visit: Yes ED Registration Date: 07/10/16 Care time: The patient presented to the Emergency Department on the above date and was hospitalized for further evaluation of their emergent condition. - New Patient This patient is new to me today: Yes Date on this admission: 07/11/16 - Critical Care Critical Care patient: No - Discharge Referral Referred to [facility] Med P.C.: No
[2016-07-11] MEDS: ERTAPENEM SODIUM 1 GM in SODIUM CHLORIDE 50 ML IVPB SCH (18:19)
--- NOTE | 2016-07-11 18:39 | PN ---
Teaching Attending Note Name of Resident: Rupali Gonsalves ATTENDING PHYSICIAN STATEMENT I saw and evaluated the patient. I reviewed the resident's note and discussed the case with the resident. I agree with the resident's findings and plan as documented. SUBJECTIVE: The patient feels better. Tijer[place] has been removed and he is voiding without difficulty. OBJECTIVE: Vital Signs Period Temp Pulse Resp BP Sys/Abbott Pulse Ox Last 24 Hr 98.1 F-100.5 F 60-72 20-22 128-148/63-100 94 GENERAL: The patient is awake, alert, and fully oriented, in no acute distress. LUNGS: Breath sounds equal, clear to auscultation bilaterally, no wheezes, no crackles, no accessory muscle use. HEART: Regular rate and rhythm, S1, S2 without murmur, rub or gallop. ABDOMEN: Soft, nontender, nondistended, normoactive bowel sounds, no guarding, no rebound, no hepatosplenomegaly, no masses. EXTREMITIES: 2+ pulses, warm, well-perfused, no edema. ASSESSMENT AND PLAN: This is a 65-year-old man with a history of CAD, type 2 DM, HTN, hyperlipidemia who presented with 3 days of fever, chills and dysuria. 1. Acute cystitis - Continue Rocephin, Pyridium, IV fluid - Follow-up urine culture 2. Urinary retention - Maintain Tijer[place] catheter - Continue Flomax - Urology consult 3. Uncontrolled type 2 diabetes mellitus - HgbA1c is 9.4 - Continue Metformin, Januvia, Novolog sliding scale 4. Hypertension, uncontrolled - Continue Lopressor 5. Hyperlipidemia - Continue Lipitor 6. CAD, history of stents - Continue Lopressor, Lipitor, Effient Problem List - Problems (1) Urinary retention Code(s): R33.9 - RETENTION OF URINE, UNSPECIFIED (2) CAD (coronary artery disease) Code(s): I25.10 - ATHSCL HEART DISEASE OF [place] CORONARY ARTERY W/O ANG PCTRS (3) Hyperlipidemia Code(s): E78.5 - HYPERLIPIDEMIA, UNSPECIFIED (4) Hypertension Code(s): I10 - ESSENTIAL (PRIMARY) HYPERTENSION (5) Type 2 diabetes mellitus Code(s): E11.9 - TYPE 2 DIABETES MELLITUS WITHOUT COMPLICATIONS
[2016-07-11] MEDS: ATORVASTATIN CA 20 MG TABLET (FP) PO SCH (22:15)
[2016-07-12] MEDS ORDERED: PT OWN MED DRAWER 7, Y5N ONE ×3 (05:38→16:44)
[2016-07-12] MEDS ORDERED: ACETAMINOPHEN 325 MG TABLET (FP) ONE (06:12)
[2016-07-12] MEDS: sitaGLIPtin PHOSPHATE 50 MG TABLET PO SCH ×2 (06:17→17:35)
[2016-07-12] MEDS: INSULIN SLIDING SCALE (NOVOLOG) 1 VIAL SQ SCH ×3 (06:20→16:10)
[2016-07-12] MEDS: TAMSULOSIN HCL 0.4 MG CAP.ER.24H (FP) PO SCH (08:38)
[2016-07-12] MEDS: PHENAZOPYRIDINE HCL 100 MG TABLET (FP) PO SCH ×3 (09:25→18:13)
[2016-07-12] MEDS: METOPROLOL TARTRATE 50 MG TABLET (FP) PO SCH ×2 (09:25→21:18)
[2016-07-12] MEDS: ACETAMINOPHEN/CAFFEINE/BUTALBITAL 1 TAB PO PRN ×2 (10:21→17:35)
[2016-07-12] MEDS: ERTAPENEM SODIUM 1 GM in SODIUM CHLORIDE 50 ML IVPB SCH (11:09)
[2016-07-12] MEDS: PRASUGREL HCL 10 MG TAB PO SCH (11:09)
[2016-07-12] MEDS: SODIUM CHLORIDE 1,000 ML IV SCH ×2 (13:05→23:18)
--- NOTE | 2016-07-12 13:19 | PN ---
Progress Note, Physician History of Present Illness: patient looks much better feels much better face looks better - Current Medication List Current Medications: Active Medications Acetaminophen/Butalbital/Caffeine (Fioricet -) 1 tablet PO Q6H PRN PRN Reason: FEVER OR PAIN Last Admin: 07/12/16 10:21 Dose: 1 tablet Atorvastatin Calcium (Lipitor -) 20 mg PO HS [facility] Last Admin: 07/11/16 22:15 Dose: 20 mg Hydralazine HCl (Apresoline Injection -) 10 mg IVPUSH Q8H PRN PRN Reason: HYPERTENSION Sodium Chloride (Normal Saline -) 1,000 mls @ 100 mls/hr IV ASDIR [facility] Last Admin: 07/12/16 13:05 Dose: 100 mls/hr Ertapenem 1 gm/ Sodium (Chloride) 50 mls @ 50 mls/hr IVPB DAILY [facility] PRN Reason: Protocol Last Admin: 07/12/16 11:09 Dose: 50 mls/hr Insulin Aspart (Novolog Vial Sliding Scale -) 1 vial SQ TIDAC [facility] PRN Reason: Protocol Last Admin: 07/12/16 11:29 Dose: 2 units Metformin HCl (Glucophage Xr -) 1,000 mg PO BIDAC [facility] Last Admin: 07/12/16 06:16 Dose: 1,000 mg Metoprolol Tartrate (Lopressor -) 50 mg PO BID [facility] Last Admin: 07/12/16 09:25 Dose: 50 mg Phenazopyridine HCl (Pyridium -) 100 mg PO PC [facility] Last Admin: 07/12/16 13:05 Dose: 100 mg Prasugrel (Effient -) 10 mg PO DAILY [facility] Last Admin: 07/12/16 11:09 Dose: 10 mg Sitagliptin Phosphate (Januvia -) 50 mg PO BIDAC [facility] Tamsulosin HCl (Flomax -) 0.4 mg PO DAILY@0830 [facility] Last Admin: 07/12/16 08:38 Dose: 0.4 mg - Objective Vital Signs: Vital Signs Temperature 79.9 F L 07/12/16 09:31 Pulse Rate 59 L 07/12/16 09:31 Respiratory Rate 20 07/12/16 09:31 Blood Pressure 146/77 07/12/16 09:31 O2 Sat by Pulse Oximetry (%) 94 L 07/12/16 09:00 Constitutional: Yes: No Distress, Calm Neck: Yes: Supple Cardiovascular: Yes: Regular Rate and Rhythm Respiratory: Yes: Regular, CTA Bilaterally Gastrointestinal: Yes: Normal Bowel Sounds, Soft Genitourinary: Yes: Other Musculoskeletal: Yes: WNL Extremities: Yes: WNL Neurological: Yes: Alert, Oriented Psychiatric: Yes: Alert, Oriented Labs: CBC, BMP 07/11/16 07:15 07/11/16 07:15 Assessment/Plan patient still having low grade fever sepsis due to uti prostatitis urinary retention fever leukocytosis plan hydration conitnue ertapenam will down grade tomorrow if patient remains afebrile for complete 24 hours continue hydration
--- NOTE | 2016-07-12 14:30 | PN ---
Physical Exam: SUBJECTIVE: Patient seen and examined. He is complaining of headache. He denies dysuria, urgency, frequency, diarrhea, nausea, vomiting, dizziness. Fever 100.2 recorded in AM. OBJECTIVE: Vital Signs Period Temp Pulse Resp BP Sys/Abbott Pulse Ox Last 24 Hr 79.9 F-99.1 F 58-64 17-20 134-146/70-85 94 GENERAL: The patient is awake, alert, and fully oriented, in no acute distress. HEAD: Normal with no signs of trauma. EYES:extraocular movements intact, sclera anicteric, conjunctiva clear. ENT: oropharynx clear without exudates, moist mucous membranes. NECK: Trachea midline, full range of motion, supple. LUNGS: clear to auscultation bilaterally, no wheezes, no crackles, no accessory muscle use. HEART: Regular rate and rhythm, S1, S2 without murmur, rub or gallop. ABDOMEN: Obese, soft, nontender, nondistended, normoactive bowel sounds, no guarding, no rebound, no hepatosplenomegaly, no masses. EXTREMITIES: no edema. NEUROLOGICAL: Normal speech, no facial asymmetry, gait not observed. PSYCH: Normal mood, normal affect. SKIN: Warm, dry, normal turgor, no rashes or lesions noted Laboratory Results - last 24 hr 07/11/16 07/12/16 07/12/16 17:12 06:16 11:12 POC Glucometer 218 183 226 Active Medications Generic Name Dose Route Start Last Admin Trade Name Freq PRN Reason Stop Dose Admin Acetaminophen/Butalbital/Caffeine 1 tablet 07/12/16 09:43 07/12/16 10:21 Fioricet - PO 1 tablet Q6H PRN Administration FEVER OR PAIN Atorvastatin Calcium 20 mg 07/09/16 22:00 07/11/16 22:15 Lipitor - PO 20 mg HS [facility] Administration Hydralazine HCl 10 mg 07/09/16 14:31 Apresoline Injection - IVPUSH Q8H PRN HYPERTENSION Sodium Chloride 1,000 mls @ 100 mls/hr 07/09/16 12:45 07/12/16 13:05 Normal Saline - IV 100 mls/hr ASDIR [facility] Administration Ertapenem 1 gm/ Sodium 50 mls @ 50 mls/hr 07/11/16 16:00 07/12/16 11:09 Chloride IVPB 50 mls/hr DAILY [facility] Administration Protocol Insulin Aspart 1 vial 07/09/16 16:30 07/12/16 11:29 Novolog Vial Sliding Scale - SQ 2 units TIDAC [facility] Administration Protocol Metformin HCl 1,000 mg 07/11/16 16:30 07/12/16 06:16 Glucophage Xr - PO 1,000 mg BIDAC [facility] Administration Metoprolol Tartrate 50 mg 07/09/16 22:00 07/12/16 09:25 Lopressor - PO 50 mg BID [facility] Administration Phenazopyridine HCl 100 mg 07/09/16 18:45 07/12/16 13:05 Pyridium - PO 100 mg PC [facility] Administration Prasugrel 10 mg 07/10/16 10:00 07/12/16 11:09 Effient - PO 10 mg DAILY [facility] Administration Sitagliptin Phosphate 50 mg 07/12/16 16:30 Januvia - PO BIDAC [facility] Tamsulosin HCl 0.4 mg 07/10/16 00:15 07/12/16 08:38 Flomax - PO 0.4 mg DAILY@0830 [facility] Administration ASSESSMENT/PLAN: This is a 65-year-old man with a history of CAD, type 2 DM, HTN, hyperlipidemia who presented with 3 days of fever, chills and dysuria. Acute cystitis, possible acute prostatitis -cont Ertapenem, monitor VS for sepsis -cont IVF -cont Pyridium -Urine culture: E.Coli -Firocet for headache Urinary retention -[place] catheter removed, -Continue Flomax -Urology consultation Uncontrolled type 2 diabetes mellitus -HgbA1c is 9.4 -Metformin changed to BID, Januvia changed to BID -cont Novolog sliding scale Hypertension - Continue Lopressor Hyperlipidemia - Continue Lipitor 20 mg HS CAD - Continue Lopressor, Lipitor, Effient F/E/N: NS/no/Regular DVT PPX: -SCDs Disposition: Med-Surg, no plan for dc yet Problem List - Problems (1) UTI (urinary tract infection) Code(s): N39.0 - URINARY TRACT INFECTION, SITE NOT SPECIFIED Qualifiers: Urinary tract infection type: acute cystitis Hematuria presence: without hematuria Qualified Code(s): N30.00 - Acute cystitis without hematuria (2) Urinary retention Code(s): R33.9 - RETENTION OF URINE, UNSPECIFIED (3) CAD (coronary artery disease) Code(s): I25.10 - ATHSCL HEART DISEASE OF [place] CORONARY ARTERY W/O ANG PCTRS (4) Hyperlipidemia Code(s): E78.5 - HYPERLIPIDEMIA, UNSPECIFIED (5) Hypertension Code(s): I10 - ESSENTIAL (PRIMARY) HYPERTENSION (6) Type 2 diabetes mellitus Code(s): E11.9 - TYPE 2 DIABETES MELLITUS WITHOUT COMPLICATIONS (7) Acute prostatitis Code(s): N41.0 - ACUTE PROSTATITIS Visit type - Emergency Visit Emergency Visit: Yes ED Registration Date: 07/10/16 Care time: The patient presented to the Emergency Department on the above date and was hospitalized for further evaluation of their emergent condition. - New Patient This patient is new to me today: No - Critical Care Critical Care patient: No - Discharge Referral Referred to [facility] Med P.C.: No
--- NOTE | 2016-07-12 15:45 | PN ---
Teaching Attending Note Name of Resident: Rupali Gonsalves ATTENDING PHYSICIAN STATEMENT I saw and evaluated the patient. I reviewed the resident's note and discussed the case with the resident. I agree with the resident's findings and plan as documented. SUBJECTIVE: Patient has no complaints. OBJECTIVE: Vital Signs Period Temp Pulse Resp BP Sys/Abbott Pulse Ox Last 24 Hr 79.9 F-99.1 F 58-64 17-20 134-146/70-85 94 GENERAL: The patient is awake, alert, and fully oriented, in no acute distress. LUNGS: Breath sounds equal, clear to auscultation bilaterally, no wheezes, no crackles, no accessory muscle use. HEART: Regular rate and rhythm, S1, S2 without murmur, rub or gallop. ABDOMEN: Soft, nontender, nondistended, normoactive bowel sounds, no guarding, no rebound, no hepatosplenomegaly, no masses. EXTREMITIES: 2+ pulses, warm, well-perfused, no edema. ASSESSMENT AND PLAN: This is a 65-year-old man with a history of CAD, type 2 DM, HTN, hyperlipidemia who presented with 3 days of fever, chills and dysuria. 1. Acute cystitis and acute prostatitis with E. coli - Rocephin changed to Zosyn because urine culture was growing non-lactose- fermenting gram neg rods - Patient had fevers on Zosyn, so it was changed to Invanz - Tmax 100.5 and WBC improved - Continue Invanz, Pyridium, IV fluid 2. Urinary retention - [place] catheter was removed yesterday - Continue Flomax - Outpatient urology follow-up 3. Uncontrolled type 2 diabetes mellitus - HgbA1c is 9.4 - Metformin, Januvia increased - Continue Novolog sliding scale 4. Hypertension, uncontrolled - Continue Lopressor 5. Hyperlipidemia - Continue Lipitor 6. CAD, history of stents - Continue Lopressor, Lipitor, Effient Problem List - Problems (1) Urinary retention Code(s): R33.9 - RETENTION OF URINE, UNSPECIFIED (2) CAD (coronary artery disease) Code(s): I25.10 - ATHSCL HEART DISEASE OF [place] CORONARY ARTERY W/O ANG PCTRS (3) Hyperlipidemia Code(s): E78.5 - HYPERLIPIDEMIA, UNSPECIFIED (4) Hypertension Code(s): I10 - ESSENTIAL (PRIMARY) HYPERTENSION (5) Type 2 diabetes mellitus Code(s): E11.9 - TYPE 2 DIABETES MELLITUS WITHOUT COMPLICATIONS
[2016-07-12] MEDS: ATORVASTATIN CA 20 MG TABLET (FP) PO SCH (21:18)
[2016-07-13] MEDS ORDERED: PT OWN MED DRAWER 7, Y5N ONE ×2 (06:13→08:04)
[2016-07-13] MEDS: sitaGLIPtin PHOSPHATE 50 MG TABLET PO SCH ×2 (06:33→17:36)
[2016-07-13] MEDS: INSULIN SLIDING SCALE (NOVOLOG) 1 VIAL SQ SCH ×3 (06:33→17:32)
[2016-07-13 06:55] LABS: BASOPHIL 0.5 % (0-2.0); EOSINOPHIL 2.6 % (0-4.5); MCH 29.2 pg (25.7-33.7); MCHC 34.2 g/dl (32.0-35.9); MEAN CELL VOLUME 85.5 fl (80-96); MEAN PLT VOLUME 9.4 fl (7.5-11.1); NEUTROPHILS 64.2 % (42.8-82.8); PLATELET COUNT 172 K/MM3 (134-434)
[2016-07-13] MEDS: TAMSULOSIN HCL 0.4 MG CAP.ER.24H (FP) PO SCH (08:18)
[2016-07-13] MEDS: PHENAZOPYRIDINE HCL 100 MG TABLET (FP) PO SCH ×3 (08:18→17:36)
[2016-07-13] MEDS: METOPROLOL TARTRATE 50 MG TABLET (FP) PO SCH ×2 (10:33→21:37)
[2016-07-13] MEDS: ERTAPENEM SODIUM 1 GM in SODIUM CHLORIDE 50 ML IVPB SCH (10:33)
[2016-07-13] MEDS: PRASUGREL HCL 10 MG TAB PO SCH (10:34)
[2016-07-13] MEDS: SODIUM CHLORIDE 1,000 ML IV SCH ×3 (10:34→21:39)
--- NOTE | 2016-07-13 14:13 | PN ---
Teaching Attending Note Name of Resident: Rupali Gonsalves ATTENDING PHYSICIAN STATEMENT I saw and evaluated the patient. I reviewed the resident's note and discussed the case with the resident. I agree with the resident's findings and plan as documented. Patient denies any fever or chills but c/o having Dysuria. Pain subsided post Fioricet that he was given due to having headache, no headache at this time. Vital Signs Temperature 99.3 F 07/13/16 14:10 Pulse Rate 62 07/13/16 14:10 Respiratory Rate 17 07/13/16 14:10 Blood Pressure 145/69 07/13/16 14:10 O2 Sat by Pulse Oximetry (%) 94 L 07/12/16 21:00 CBCD WBC 10.0 K/mm3 (4.0-10.0) 07/13/16 05:55 RBC 4.48 M/mm3 (4.00-5.60) 07/13/16 05:55 Hgb 13.1 GM/dL (11.7-16.9) 07/13/16 05:55 Hct 38.3 % (35.4-49) 07/13/16 05:55 MCV 85.5 fl (80-96) 07/13/16 05:55 MCHC 34.2 g/dl (32.0-35.9) 07/13/16 05:55 RDW 13.0 % (11.9-15.9) 07/13/16 05:55 Plt Count 172 K/MM3 (134-434) D 07/13/16 05:55 MPV 9.4 fl (7.5-11.1) 07/13/16 05:55 CMP Sodium 136 mmol/L (136-145) 07/11/16 07:15 Potassium 3.6 mmol/L (3.5-5.1) 07/11/16 07:15 Chloride 102 mmol/L (98-107) 07/11/16 07:15 Carbon Dioxide 24 mmol/L (21-32) 07/11/16 07:15 Anion Gap 10 (8-16) 07/11/16 07:15 BUN 10 mg/dL (7-18) 07/11/16 07:15 Creatinine 0.9 mg/dL (0.7-1.3) 07/11/16 07:15 Creat Clearance w eGFR > 60 (>60) 07/09/16 08:54 Random Glucose 223 mg/dL (74-106) H 07/11/16 07:15 Calcium 8.2 mg/dL (8.5-10.1) L 07/11/16 07:15 Total Bilirubin 0.6 mg/dL (0.2-1.0) D 07/11/16 07:15 AST 26 U/L (15-37) D 07/11/16 07:15 ALT 36 U/L (12-78) D 07/11/16 07:15 Alkaline Phosphatase 111 U/L (45-117) 07/11/16 07:15 Total Protein 6.1 g/dl (6.4-8.2) L 07/11/16 07:15 Albumin 2.9 g/dl (3.4-5.0) L 07/11/16 07:15 Current Medications Generic Name Dose Route Start Last Admin Trade Name Freq PRN Reason Stop Dose Admin Acetaminophen/Butalbital/Caffeine 1 tablet 07/12/16 09:43 07/12/16 17:35 Fioricet - PO 1 tablet Q6H PRN Administration FEVER OR PAIN Atorvastatin Calcium 20 mg 07/09/16 22:00 07/12/16 21:18 Lipitor - PO 20 mg HS [facility] Administration Hydralazine HCl 10 mg 07/09/16 14:31 Apresoline Injection - IVPUSH Q8H PRN HYPERTENSION Sodium Chloride 1,000 mls @ 100 mls/hr 07/09/16 12:45 07/13/16 10:34 Normal Saline - IV 100 mls/hr ASDIR [facility] Administration Ertapenem 1 gm/ Sodium 50 mls @ 50 mls/hr 07/11/16 16:00 07/13/16 10:33 Chloride IVPB 50 mls/hr DAILY [facility] Administration Protocol Insulin Aspart 1 vial 07/09/16 16:30 07/13/16 12:14 Novolog Vial Sliding Scale - SQ Not Given TIDAC [facility] Protocol Metformin HCl 1,000 mg 07/11/16 16:30 07/13/16 06:33 Glucophage Xr - PO 1,000 mg BIDAC [facility] Administration Metoprolol Tartrate 50 mg 07/09/16 22:00 07/13/16 10:33 Lopressor - PO 50 mg BID [facility] Administration Phenazopyridine HCl 100 mg 07/09/16 18:45 07/13/16 08:18 Pyridium - PO 100 mg PC [facility] Administration Prasugrel 10 mg 07/10/16 10:00 07/13/16 10:34 Effient - PO 10 mg DAILY [facility] Administration Sitagliptin Phosphate 50 mg 07/12/16 16:30 07/13/16 06:33 Januvia - PO 50 mg BIDAC [facility] Administration Tamsulosin HCl 0.4 mg 07/10/16 00:15 07/13/16 08:18 Flomax - PO 0.4 mg DAILY@0830 [facility] Administration Home Medications Medication Instructions Recorded Metoprolol Tartrate [Lopressor] 50 mg PO BID 07/09/16 Prasugrel HCl [Effient] 10 mg PO DAILY 07/09/16 Simvastatin [Zocor -] 40 mg PO HS 07/09/16 Sitagliptin Phos/Metformin HCl 1 each PO DAILY 07/09/16 [Janumet Xr 50-1,000 mg Tablet] Microbiology 07/09/16 08:26 Urine - Urine Tijer[place] Urine Culture - Final Escherichia Coli GENERAL: The patient is awake, alert, and fully oriented, in no acute distress. LUNGS: Breath sounds equal, clear to auscultation bilaterally, no wheezes, no crackles, no accessory muscle use. HEART: Regular rate and rhythm, S1, S2 without murmur, rub or gallop. ABDOMEN: Soft, nontender, nondistended, normoactive bowel sounds, no guarding, no rebound, no hepatosplenomegaly, no masses. EXTREMITIES: 2+ pulses, warm, well-perfused, no edema. ASSESSMENT AND PLAN: This is a 65-year-old man with a history of CAD, type 2 DM, HTN, hyperlipidemia who presented with 3 days of fever, chills and dysuria. # Acute cystitis/ prostatitis with final urinary culture growing E. coli s/p Rocephin changed to Zosyn because urine culture was growing non-lactose- fermenting gram neg rods ,Patient had fevers on Zosyn, so it was changed to Invanz as per ID. No further fever or chills for the past 24 hrs. # Acute Urinary retention s/p [place] catheter ,on Flomax contunue ; Outpatient urology follow-up # T2DM Uncontrolled ; HgbA1c is 9.4 , On Metformin,and Januvia continue with Novolog sliding scale with coverage. # Hypertension, uncontrolled on Lopressor continue # Hyperlipidemia on Lipitor for now # CAD, history of stents Continue Lopressor, Lipitor, Effient DVT Px: Effient
--- NOTE | 2016-07-13 15:32 | PN ---
Physical Exam: SUBJECTIVE: Patient seen and examined. he denies headache but noticed dysuria this motning. Denies blood in urine, fever, chills. OBJECTIVE: Vital Signs Period Temp Pulse Resp BP Sys/Abbott Pulse Ox Last 24 Hr 98.8 F-100.0 F 55-62 17-20 145-158/69-81 94-95 ASSESSMENT/PLAN: GENERAL: The patient is awake, alert, and fully oriented, in no acute distress. HEAD: Normal with no signs of trauma. EYES:extraocular movements intact, sclera anicteric, conjunctiva clear. ENT: oropharynx clear without exudates, moist mucous membranes. NECK: Trachea midline, full range of motion, supple. LUNGS: clear to auscultation bilaterally, no wheezes, no crackles, no accessory muscle use. HEART: Regular rate and rhythm, S1, S2 without murmur, rub or gallop. ABDOMEN: Obese, soft, nontender, nondistended, normoactive bowel sounds, no guarding, no rebound, no hepatosplenomegaly, no masses. EXTREMITIES: no edema. NEUROLOGICAL: Normal speech, no facial asymmetry, gait not observed. PSYCH: Normal mood, normal affect. SKIN: Warm, dry, normal turgor, no rashes or lesions noted Laboratory Results - last 24 hr 07/12/16 07/13/16 07/13/16 16:08 05:55 06:32 WBC 10.0 RBC 4.48 Hgb 13.1 Hct 38.3 MCV 85.5 MCHC 34.2 RDW 13.0 Plt Count 172 D MPV 9.4 Neutrophils % 64.2 Lymphocytes % 23.4 D Monocytes % 9.3 Eosinophils % 2.6 Basophils % 0.5 POC Glucometer 149 165 Stool Occult Blood 07/13/16 07/13/16 10:30 12:12 WBC RBC Hgb Hct MCV MCHC RDW Plt Count MPV Neutrophils % Lymphocytes % Monocytes % Eosinophils % Basophils % POC Glucometer 193 Stool Occult Blood Negative Active Medications Current Medications Generic Name Dose Route Start Last Admin Trade Name Freq PRN Reason Stop Dose Admin Acetaminophen/Butalbital/Caffeine 1 tablet 07/12/16 09:43 07/12/16 17:35 Fioricet - PO 1 tablet Q6H PRN Administration FEVER OR PAIN Atorvastatin Calcium 20 mg 07/09/16 22:00 07/12/16 21:18 Lipitor - PO 20 mg HS ROC Administration Ceftriaxone Sodium 1 gm 07/14/16 10:00 Rocephin 1gm Ivpb (Pre-Docked) IVPB DAILY [facility] Hydralazine HCl 10 mg 07/09/16 14:31 Apresoline Injection - IVPUSH Q8H PRN HYPERTENSION Sodium Chloride 1,000 mls @ 100 mls/hr 07/09/16 12:45 07/13/16 14:38 Normal Saline - IV Not Given ASDIR [facility] Insulin Aspart 1 vial 07/09/16 16:30 07/13/16 17:32 Novolog Vial Sliding Scale - SQ Not Given TIDAC [facility] Protocol Metformin HCl 1,000 mg 07/11/16 16:30 07/13/16 17:32 Glucophage Xr - PO 1,000 mg BIDAC ROC Administration Metoprolol Tartrate 50 mg 07/09/16 22:00 07/13/16 10:33 Lopressor - PO 50 mg BID ROC Administration Phenazopyridine HCl 100 mg 07/09/16 18:45 07/13/16 17:36 Pyridium - PO 100 mg PC ROC Administration Prasugrel 10 mg 07/10/16 10:00 07/13/16 10:34 Effient - PO 10 mg DAILY ROC Administration Sitagliptin Phosphate 50 mg 07/12/16 16:30 07/13/16 17:36 Januvia - PO 50 mg BIDAC ROC Administration Tamsulosin HCl 0.4 mg 07/10/16 00:15 07/13/16 08:18 Flomax - PO 0.4 mg DAILY@0830 ROC Administration ASSESSMENT/PLAN: This is a 65-year-old man with a history of CAD, type 2 DM, HTN, hyperlipidemia who presented with 3 days of fever, chills and dysuria. Acute cystitis, possible acute prostatitis -Ertapenem to Ceftriaxone, monitor VS for sepsis -cont IVF -cont Pyridium -Urine culture: E.Coli -Firocet for headache Urinary retention -[place] catheter removed, -Continue Flomax -Urology consultation Uncontrolled type 2 diabetes mellitus -HgbA1c is 9.4 -Metformin changed to BID, Januvia changed to BID -cont Novolog sliding scale Hypertension - Continue Lopressor Hyperlipidemia - Continue Lipitor 20 mg HS CAD - Continue Lopressor, Lipitor, Effient F/E/N: NS/no/Regular DVT PPX: -SCDs Disposition: Med-Surg, no plan for dc yet Problem List - Problems (1) UTI (urinary tract infection) Code(s): N39.0 - URINARY TRACT INFECTION, SITE NOT SPECIFIED Qualifiers: Urinary tract infection type: acute cystitis Hematuria presence: without hematuria Qualified Code(s): N30.00 - Acute cystitis without hematuria (2) Urinary retention Code(s): R33.9 - RETENTION OF URINE, UNSPECIFIED (3) CAD (coronary artery disease) Code(s): I25.10 - ATHSCL HEART DISEASE OF [place] CORONARY ARTERY W/O ANG PCTRS (4) Hyperlipidemia Code(s): E78.5 - HYPERLIPIDEMIA, UNSPECIFIED (5) Hypertension Code(s): I10 - ESSENTIAL (PRIMARY) HYPERTENSION (6) Type 2 diabetes mellitus Code(s): E11.9 - TYPE 2 DIABETES MELLITUS WITHOUT COMPLICATIONS (7) Acute prostatitis Code(s): N41.0 - ACUTE PROSTATITIS Visit type - Emergency Visit Emergency Visit: Yes ED Registration Date: 07/10/16 Care time: The patient presented to the Emergency Department on the above date and was hospitalized for further evaluation of their emergent condition. - New Patient This patient is new to me today: No - Critical Care Critical Care patient: No - Discharge Referral Referred to [facility] Med P.C.: No
--- NOTE | 2016-07-13 15:59 | PN ---
Progress Note, Physician History of Present Illness: patient looks better no issues - Current Medication List Current Medications: Active Medications Acetaminophen/Butalbital/Caffeine (Fioricet -) 1 tablet PO Q6H PRN PRN Reason: FEVER OR PAIN Last Admin: 07/12/16 17:35 Dose: 1 tablet Atorvastatin Calcium (Lipitor -) 20 mg PO HS [facility] Last Admin: 07/12/16 21:18 Dose: 20 mg Hydralazine HCl (Apresoline Injection -) 10 mg IVPUSH Q8H PRN PRN Reason: HYPERTENSION Sodium Chloride (Normal Saline -) 1,000 mls @ 100 mls/hr IV ASDIR COUNT INCLUDES [facility] Last Admin: 07/13/16 14:38 Dose: Not Given Ertapenem 1 gm/ Sodium (Chloride) 50 mls @ 50 mls/hr IVPB DAILY [facility]ES [facility] PRN Reason: Protocol Last Admin: 07/13/16 10:33 Dose: 50 mls/hr Insulin Aspart (Novolog Vial Sliding Scale -) 1 vial SQ TIDAC COUNT [facility]CLUDES [facility] PRN Reason: Protocol Last Admin: 07/13/16 12:14 Dose: Not Given Metformin HCl (Glucophage Xr -) 1,000 mg PO BIDAC COUNT [facility]CLUDES [facility] Last Admin: 07/13/16 06:33 Dose: 1,000 mg Metoprolol Tartrate (Lopressor -) 50 mg PO BID COUNT [facility]CLUDES [facility] Last Admin: 07/13/16 10:33 Dose: 50 mg Phenazopyridine HCl (Pyridium -) 100 mg PO PC COUNT [facility]CLUDES [facility] Last Admin: 07/13/16 14:38 Dose: 100 mg Prasugrel (Effient -) 10 mg PO DAILY [facility]CLUD[facility] Last Admin: 07/13/16 10:34 Dose: 10 mg Sitagliptin Phosphate (Januvia -) 50 mg PO BIDAC COUNT [facility]CLUDES [facility] Last Admin: 07/13/16 06:33 Dose: 50 mg Tamsulosin HCl (Flomax -) 0.4 mg PO DAILY@0830 [facility]CLUDES [facility] Last Admin: 07/13/16 08:18 Dose: 0.4 mg - Objective Vital Signs: Vital Signs Temperature 99.3 F 07/13/16 14:10 Pulse Rate 62 07/13/16 14:10 Respiratory Rate 17 07/13/16 14:10 Blood Pressure 145/69 07/13/16 14:10 O2 Sat by Pulse Oximetry (%) 95 07/13/16 09:00 Constitutional: Yes: No Distress, Calm Neck: Yes: Supple Cardiovascular: Yes: Regular Rate and Rhythm Respiratory: Yes: Regular, CTA Bilaterally Musculoskeletal: Yes: WNL Extremities: Yes: WNL Neurological: Yes: Alert, Oriented Labs: CBC, BMP 07/13/16 05:55 07/11/16 07:15 Assessment/Plan patient still having low grade fever sepsis due to uti prostatitis urinary retention fever leukocytosis plan changed abx to ceftriaxone will watch patient to get 5 days of iv abx then we cipro for another 5 days
[2016-07-13] MEDS: ATORVASTATIN CA 20 MG TABLET (FP) PO SCH (21:37)
[2016-07-14] MEDS: sitaGLIPtin PHOSPHATE 50 MG TABLET PO SCH ×2 (06:41→17:42)
[2016-07-14] MEDS: INSULIN SLIDING SCALE (NOVOLOG) 1 VIAL SQ SCH ×3 (06:42→17:43)
[2016-07-14] MEDS: SODIUM CHLORIDE 1,000 ML IV SCH ×2 (06:42→17:45)
[2016-07-14] MEDS: PHENAZOPYRIDINE HCL 100 MG TABLET (FP) PO SCH ×3 (08:55→17:43)
[2016-07-14] MEDS: TAMSULOSIN HCL 0.4 MG CAP.ER.24H (FP) PO SCH (08:55)
[2016-07-14] MEDS: cefTRIAXone 1 GM/50 ML BAG (PRE-DOCKED) IVPB SCH (09:39)
[2016-07-14] MEDS: PRASUGREL HCL 10 MG TAB PO SCH (09:41)
[2016-07-14] MEDS: METOPROLOL TARTRATE 50 MG TABLET (FP) PO SCH ×2 (09:41→21:13)
[2016-07-14] MEDS ORDERED: CEFTRIAXONE 1 GM in DEXTROSE 5%-WATER - 50 ML IVPB SCH (10:00)
[2016-07-14] MEDS: ACETAMINOPHEN/CAFFEINE/BUTALBITAL 1 TAB PO PRN (11:38)
--- NOTE | 2016-07-14 13:26 | PN ---
Teaching Attending Note Name of Resident: Rupali Gonsalves ATTENDING PHYSICIAN STATEMENT I saw and evaluated the patient. I reviewed the resident's note and discussed the case with the resident. I agree with the resident's findings and plan as documented. Patient is feeling better, would like to go home, but as per nurse patient saturation is 91%. Patient denies being shortness of breath. Patient has no fever or chills. CBCD WBC 10.0 K/mm3 (4.0-10.0) 07/13/16 05:55 RBC 4.48 M/mm3 (4.00-5.60) 07/13/16 05:55 Hgb 13.1 GM/dL (11.7-16.9) 07/13/16 05:55 Hct 38.3 % (35.4-49) 07/13/16 05:55 MCV 85.5 fl (80-96) 07/13/16 05:55 MCHC 34.2 g/dl (32.0-35.9) 07/13/16 05:55 RDW 13.0 % (11.9-15.9) 07/13/16 05:55 Plt Count 172 K/MM3 (134-434) D 07/13/16 05:55 MPV 9.4 fl (7.5-11.1) 07/13/16 05:55 CMP Sodium 136 mmol/L (136-145) 07/11/16 07:15 Potassium 3.6 mmol/L (3.5-5.1) 07/11/16 07:15 Chloride 102 mmol/L (98-107) 07/11/16 07:15 Carbon Dioxide 24 mmol/L (21-32) 07/11/16 07:15 Anion Gap 10 (8-16) 07/11/16 07:15 BUN 10 mg/dL (7-18) 07/11/16 07:15 Creatinine 0.9 mg/dL (0.7-1.3) 07/11/16 07:15 Creat Clearance w eGFR > 60 (>60) 07/09/16 08:54 Random Glucose 223 mg/dL (74-106) H 07/11/16 07:15 Calcium 8.2 mg/dL (8.5-10.1) L 07/11/16 07:15 Total Bilirubin 0.6 mg/dL (0.2-1.0) D 07/11/16 07:15 AST 26 U/L (15-37) D 07/11/16 07:15 ALT 36 U/L (12-78) D 07/11/16 07:15 Alkaline Phosphatase 111 U/L (45-117) 07/11/16 07:15 Total Protein 6.1 g/dl (6.4-8.2) L 07/11/16 07:15 Albumin 2.9 g/dl (3.4-5.0) L 07/11/16 07:15 Current Medications Generic Name Dose Route Start Last Admin Trade Name Freq PRN Reason Stop Dose Admin Acetaminophen/Butalbital/Caffeine 1 tablet 07/12/16 09:43 07/14/16 11:38 Fioricet - PO 1 tablet Q6H PRN Administration FEVER OR PAIN Atorvastatin Calcium 20 mg 07/09/16 22:00 07/13/16 21:37 Lipitor - PO 20 mg HS ROC Administration Ceftriaxone Sodium 1 gm 07/14/16 10:00 07/14/16 09:39 Rocephin 1gm Ivpb (Pre-Docked) IVPB 1 gm DAILY ROC Administration Hydralazine HCl 10 mg 07/09/16 14:31 Apresoline Injection - IVPUSH Q8H PRN HYPERTENSION Sodium Chloride 1,000 mls @ 100 mls/hr 07/09/16 12:45 07/14/16 06:42 Normal Saline - IV 100 mls/hr ASDIR ROC Administration Insulin Aspart 1 vial 07/09/16 16:30 07/14/16 11:34 Novolog Vial Sliding Scale - SQ Not Given TIDAC [facility] Protocol Metformin HCl 1,000 mg 07/11/16 16:30 07/14/16 06:41 Glucophage Xr - PO 1,000 mg BIDAC [facility] Administration Metoprolol Tartrate 50 mg 07/09/16 22:00 07/14/16 09:41 Lopressor - PO 50 mg BID ROC Administration Phenazopyridine HCl 100 mg 07/09/16 18:45 07/14/16 08:55 Pyridium - PO 100 mg PC ROC Administration Prasugrel 10 mg 07/10/16 10:00 07/14/16 09:41 Effient - PO 10 mg DAILY ROC Administration Sitagliptin Phosphate 50 mg 07/12/16 16:30 07/14/16 06:41 Januvia - PO 50 mg BIDAC ROC Administration Tamsulosin HCl 0.4 mg 07/10/16 00:15 07/14/16 08:55 Flomax - PO 0.4 mg DAILY@0830 ROC Administration Home Medications Medication Instructions Recorded Metoprolol Tartrate [Lopressor] 50 mg PO BID 07/09/16 Prasugrel HCl [Effient] 10 mg PO DAILY 07/09/16 Simvastatin [Zocor -] 40 mg PO HS 07/09/16 Sitagliptin Phos/Metformin HCl 1 each PO DAILY 07/09/16 [Janumet Xr 50-1,000 mg Tablet] GENERAL: The patient is awake, alert, and fully oriented, in no acute distress. LUNGS: Breath sounds equal, clear to auscultation bilaterally, no wheezes, no crackles, no accessory muscle use. HEART: Regular rate and rhythm, S1, S2 without murmur, rub or gallop. ABDOMEN: Soft, nontender, nondistended, normoactive bowel sounds, no guarding, no rebound, no hepatosplenomegaly, no masses. EXTREMITIES: 2+ pulses, warm, well-perfused, no edema. Microbiology 07/13/16 11:01 Stool Salmonella/Shigella Culture - Preliminary Pseudomonas Species waiting for sensitivity 07/13/16 11:01 Stool Yersinia Culture - Preliminary NO ENTERIC PATHOGENS, 24 HOURS, ON PRIMARY PLATES 07/13/16 11:01 Stool Vibrio Culture - Preliminary NO ENTERIC PATHOGENS, 24 HOURS, ON PRIMARY PLATES 07/13/16 11:01 Stool Escherichia coli 0157 Culture - Preliminary NO ENTERIC PATHOGENS, 24 HOURS, ON PRIMARY PLATES 07/13/16 10:30 Stool Clostridium difficile Antigen (GERMAN) - Final 07/13/16 10:30 Stool Clostridium difficile Toxin Assay - Final 07/09/16 08:26 Urine - Urine Tijer[place] Urine Culture - Final Escherichia Coli ASSESSMENT AND PLAN: This is a 65-year-old man with a history of CAD, type 2 DM, HTN, hyperlipidemia who presented with 3 days of fever, chills and dysuria. # Acute cystitis/ prostatitis with final urinary culture growing E. coli on Rocephin now as per ID. No further fever or chills for the past 24 hrs. Stool positive for Psudomonas , sensitivity is pending. # O2 sat 91% ; iNCENTIVE SPIROMETER, 4X PER DAY, 10X EACH. CXR R/O INFILTRATE; WILL MONITOR # Acute Urinary retention s/p [place] catheter ,on Flomax continue ; Outpatient urology follow-up # T2DM Uncontrolled ; HgbA1c is 9.4 , On Metformin,and Januvia continue with Novolog sliding scale with coverage. # Hypertension, uncontrolled on Lopressor continue # Hyperlipidemia on Lipitor for now # CAD, history of stents Continue Lopressor, Lipitor, Effient DVT Px: Effient
--- NOTE | 2016-07-14 14:20 | PN ---
Physical Exam: SUBJECTIVE: Patient seen and examined. The pt is feeling good today. He denies dysuria, increased frequency, urgency, fever, chills, headache. OBJECTIVE: Vital Signs Period Temp Pulse Resp BP Sys/Abbott Pulse Ox Last 24 Hr 98.2 F-98.9 F 52-68 18-20 136-149/69-81 90-95 GENERAL: The patient is awake, alert, and fully oriented, in no acute distress. HEAD: Normal with no signs of trauma. EYES: PERRL, extraocular movements intact, sclera anicteric, conjunctiva clear. No ptosis. ENT: oropharynx clear without exudates, moist mucous membranes. NECK: Trachea midline, full range of motion, supple. LUNGS: clear to auscultation bilaterally, no wheezes, no crackles, no accessory muscle use. HEART: Regular rate and rhythm, S1, S2 without murmur, rub or gallop. ABDOMEN: Obese, soft, nontender, nondistended, normoactive bowel sounds, no guarding, no rebound, no hepatosplenomegaly, no masses. EXTREMITIES: no edema. NEUROLOGICAL: Normal speech, gait not observed, motor:5/5, no sansation changes. PSYCH: Normal mood, normal affect. SKIN: Warm, dry, normal turgor, no rashes or lesions noted Laboratory Results - last 24 hr 07/13/16 07/14/16 07/14/16 17:28 06:40 11:32 POC Glucometer 153 158 184 Active Medications Generic Name Dose Route Start Last Admin Trade Name Freq PRN Reason Stop Dose Admin Atorvastatin Calcium 20 mg 07/09/16 22:00 07/13/16 21:37 Lipitor - PO 20 mg HS ROC Administration Ceftriaxone Sodium 1 gm 07/14/16 10:00 07/14/16 09:39 Rocephin 1gm Ivpb (Pre-Docked) IVPB 1 gm DAILY ROC Administration Hydralazine HCl 10 mg 07/09/16 14:31 Apresoline Injection - IVPUSH Q8H PRN HYPERTENSION Sodium Chloride 1,000 mls @ 100 mls/hr 07/09/16 12:45 07/14/16 06:42 Normal Saline - IV 100 mls/hr ASDIR ROC Administration Insulin Aspart 1 vial 07/09/16 16:30 07/14/16 11:34 Novolog Vial Sliding Scale - SQ Not Given TIDAC [facility] Protocol Metformin HCl 1,000 mg 07/11/16 16:30 07/14/16 06:41 Glucophage Xr - PO 1,000 mg BIDAC ROC Administration Metoprolol Tartrate 50 mg 07/09/16 22:00 07/14/16 09:41 Lopressor - PO 50 mg BID ROC Administration Phenazopyridine HCl 100 mg 07/09/16 18:45 07/14/16 13:46 Pyridium - PO 100 mg PC ROC Administration Prasugrel 10 mg 07/10/16 10:00 07/14/16 09:41 Effient - PO 10 mg DAILY ROC Administration Sitagliptin Phosphate 50 mg 07/12/16 16:30 07/14/16 06:41 Januvia - PO 50 mg BIDAC ROC Administration Tamsulosin HCl 0.4 mg 07/10/16 00:15 07/14/16 08:55 Flomax - PO 0.4 mg DAILY@0830 ROC Administration Stool culture positive for Pseudomonas Aeruginosa. Stool: C.Diff-neg CXR: negative for acute pathology ASSESSMENT/PLAN: This is a 65-year-old man with a history of CAD, type 2 DM, HTN, hyperlipidemia who presented with 3 days of fever, chills and dysuria. Acute cystitis, possible acute prostatitis -Ertapenem changed to Ceftriaxone, monitor VS for sepsis -cont IVF -cont Pyridium -Urine culture: E.Coli -Firocet for headache Urinary retention -[place] catheter removed, no more retention, -Continue Flomax -f/u Urology consultation Hypoxia (Saturation 89-91% on RA): -we ordered CXR, incentive spirometer 10 times each, Oxygen Supplementation. His Sat was 95% on 2L. -will monitor Uncontrolled type 2 diabetes mellitus -HgbA1c is 9.4 -Metformin changed to BID, Januvia changed to BID -cont Novolog sliding scale Hypertension - Continue Lopressor Hyperlipidemia - Continue Lipitor 20 mg HS CAD - Continue Lopressor, Lipitor, Effient F/E/N: NS/no/Regular DVT PPX: -SCDs Disposition: Med-Surg, no plan for dc yet Problem List - Problems (1) UTI (urinary tract infection) Code(s): N39.0 - URINARY TRACT INFECTION, SITE NOT SPECIFIED Qualifiers: Urinary tract infection type: acute cystitis Hematuria presence: without hematuria Qualified Code(s): N30.00 - Acute cystitis without hematuria (2) Urinary retention Code(s): R33.9 - RETENTION OF URINE, UNSPECIFIED (3) CAD (coronary artery disease) Code(s): I25.10 - ATHSCL HEART DISEASE OF [place] CORONARY ARTERY W/O ANG PCTRS (4) Hyperlipidemia Code(s): E78.5 - HYPERLIPIDEMIA, UNSPECIFIED (5) Hypertension Code(s): I10 - ESSENTIAL (PRIMARY) HYPERTENSION (6) Type 2 diabetes mellitus Code(s): E11.9 - TYPE 2 DIABETES MELLITUS WITHOUT COMPLICATIONS (7) Acute prostatitis Code(s): N41.0 - ACUTE PROSTATITIS Visit type - Emergency Visit Emergency Visit: Yes ED Registration Date: 07/10/16 Care time: The patient presented to the Emergency Department on the above date and was hospitalized for further evaluation of their emergent condition. - New Patient This patient is new to me today: No - Critical Care Critical Care patient: No - Discharge Referral Referred to [facility] Med P.C.: No
--- NOTE | 2016-07-14 15:00 | PN ---
Progress Note, Physician History of Present Illness: stable still having pain while passing urine but no fever stable - Current Medication List Current Medications: Active Medications Atorvastatin Calcium (Lipitor -) 20 mg PO HS [facility] Last Admin: 07/13/16 21:37 Dose: 20 mg Ceftriaxone Sodium (Rocephin 1gm Ivpb (Pre-Docked)) 1 gm IVPB DAILY [facility] Last Admin: 07/14/16 09:39 Dose: 1 gm Hydralazine HCl (Apresoline Injection -) 10 mg IVPUSH Q8H PRN PRN Reason: HYPERTENSION Sodium Chloride (Normal Saline -) 1,000 mls @ 100 mls/hr IV ASDIR [facility] Last Admin: 07/14/16 06:42 Dose: 100 mls/hr Insulin Aspart (Novolog Vial Sliding Scale -) 1 vial SQ TIDAC [facility] PRN Reason: Protocol Last Admin: 07/14/16 11:34 Dose: Not Given Metformin HCl (Glucophage Xr -) 1,000 mg PO BIDAC [facility] Last Admin: 07/14/16 06:41 Dose: 1,000 mg Metoprolol Tartrate (Lopressor -) 50 mg PO BID [facility] Last Admin: 07/14/16 09:41 Dose: 50 mg Phenazopyridine HCl (Pyridium -) 100 mg PO PC [facility] Last Admin: 07/14/16 13:46 Dose: 100 mg Prasugrel (Effient -) 10 mg PO DAILY [facility] Last Admin: 07/14/16 09:41 Dose: 10 mg Sitagliptin Phosphate (Januvia -) 50 mg PO BIDAC [facility] Last Admin: 07/14/16 06:41 Dose: 50 mg Tamsulosin HCl (Flomax -) 0.4 mg PO DAILY@0830 [facility] Last Admin: 07/14/16 08:55 Dose: 0.4 mg - Objective Vital Signs: Vital Signs Temperature 98.8 F 07/14/16 13:48 Pulse Rate 56 L 07/14/16 13:48 Respiratory Rate 18 07/14/16 13:48 Blood Pressure 137/75 07/14/16 13:48 O2 Sat by Pulse Oximetry (%) 90 L 07/14/16 09:00 Constitutional: Yes: No Distress, Calm Cardiovascular: Yes: Regular Rate and Rhythm Respiratory: Yes: Regular, CTA Bilaterally Gastrointestinal: Yes: Normal Bowel Sounds, Soft Musculoskeletal: Yes: WNL Extremities: Yes: WNL Integumentary: Yes: WNL Neurological: Yes: Alert, Oriented Psychiatric: Yes: Alert Labs: CBC, BMP 07/13/16 05:55 07/11/16 07:15 Assessment/Plan patient still having low grade fever sepsis due to uti prostatitis urinary retention fever leukocytosis plan continue abx in view of pain patient will need total of 14 days when patient ready to discharge will change to cipro
[2016-07-14] MEDS ORDERED: PT OWN MED DRAWER 7, Y5N ONE (17:39)
[2016-07-14] MEDS ORDERED: ACETAMINOPHEN 500 MG TABLET (FP) PO PRN (21:03)
[2016-07-14] MEDS: ATORVASTATIN CA 20 MG TABLET (FP) PO SCH (21:13)
[2016-07-15] MEDS ORDERED: INSULIN (NOVOLOG) ASPART 100 UNITS/ML 10ML VIAL ONE (05:47)
[2016-07-15] MEDS: INSULIN SLIDING SCALE (NOVOLOG) 1 VIAL SQ SCH ×2 (06:19→12:34)
[2016-07-15] MEDS: sitaGLIPtin PHOSPHATE 50 MG TABLET PO SCH (06:22)
[2016-07-15] MEDS: PHENAZOPYRIDINE HCL 100 MG TABLET (FP) PO SCH ×2 (09:11→12:34)
[2016-07-15] MEDS: cefTRIAXone 1 GM/50 ML BAG (PRE-DOCKED) IVPB SCH (09:11)
[2016-07-15] MEDS: TAMSULOSIN HCL 0.4 MG CAP.ER.24H (FP) PO SCH (09:11)
[2016-07-15] MEDS: PRASUGREL HCL 10 MG TAB PO SCH (09:12)
[2016-07-15] MEDS ORDERED: METOPROLOL TARTRATE 25 MG TABLET (FP) PO SCH (11:45)
[2016-07-15 12:17] VITALS: TEMP 98.4
[2016-07-15] MEDS: METOPROLOL TARTRATE 50 MG TABLET (FP) PO SCH (12:34)
[2016-07-15 12:38] VITALS: BP 137/80; PULSE 66
[2016-07-15] MEDS ORDERED: PICC LINE 8 ML FLUSH PROTOCOL IVPUSH PRN (12:51)
--- NOTE | 2016-07-15 13:46 | DS ---
Physical Exam: SUBJECTIVE: Patient seen and examined. He is feeling good today. He is complaining of mild discomfort while urinating but no pain/dysuria. He denies fever, chills, abdominal pain, N/V, diarrhea, dizziness, headache. Overnight his HR was low and we held his Metoprolol. OBJECTIVE: Vital Signs Period Temp Pulse Resp BP Sys/Abbott Pulse Ox Last 24 Hr 98.0 F-98.8 F 52-66 18-22 137-175/74-84 91 PHYSICAL EXAM GENERAL: The patient is awake, alert, and fully oriented, in no acute distress. HEAD: Normal with no signs of trauma. EYES: extraocular movements intact, sclera anicteric ENT: oropharynx clear without exudates, moist mucous membranes. NECK: Trachea midline, supple. LUNGS: Breath sounds equal, clear to auscultation bilaterally, no wheezes, no crackles, no accessory muscle use. HEART: Regular rate and rhythm, S1, S2 without murmur, rub or gallop. ABDOMEN: Obese, soft, nontender, nondistended, normoactive bowel sounds, no guarding, no rebound, no hepatosplenomegaly, no masses. EXTREMITIES: no edema. NEUROLOGICAL: Normal speech, gait not observed. PSYCH: Normal mood, normal affect. SKIN: Warm, dry, normal turgor, no rashes or lesions noted. LABS Laboratory Results - last 24 hr 07/14/16 07/15/16 07/15/16 17:36 06:09 12:13 POC Glucometer 145 145 137 HOSPITAL COURSE: Date of Admission:07/10/16 Date of Discharge: 07/15/16 Minutes to complete discharge: 50 Discharge Summary Reason For Visit: URINARY TRACT INFECTION Current Active Problems Acute prostatitis (Acute) UTI (urinary tract infection) (Acute) Urinary retention (Acute) CAD (coronary artery disease) (Chronic) Hyperlipidemia (Chronic) Hypertension (Chronic) Type 2 diabetes mellitus (Chronic) Hospital Course: 65-year-old male, history of soj-xlorqdh-lquggjlif diabetes, CAD with 3 stents BPH, comes with dysuria 3 days. Patient states every time he urinates it pillai. Pt also reports subjective fever. No hematuria, flank pain, nausea, vomiting, fever or chills. No history of renal stones. No history of UTI in the past. He was admitted for UTI/prostatitis. Hospital course: Acute cystitis, possible acute prostatitis: he was treated with Ertapenem, Ceftriaxone, Pyridium, Urine culture: E.Coli. He clinically improved, no more fever and we discharged him to continue Ciprofloxacin for 7 more days. He was also retaining urine, we consulted urology, started Flomax, [place] cath. which was later removed and pt didn't have more urine retention. Hypoxia (Saturation 89-91% on RA): we ordered CXR which was negative for acute pathology, incentive spirometer 10 times each, Oxygen Supplementation. His Sat was 95% on 2L. He improved the next day and didn't need Oxygen Supplementation. Uncontrolled type 2 diabetes mellitus : HgbA1c is 9.4, we changed Metformin and Januvia to BID instead of qd and we cont Novolog sliding scale. For Hypertension, Hyperlipidemia and CAD we continued home medications. He improved clinically and was discharged home to f/u with PCP and Urologist. Condition: Improved - Instructions Diet, Activity, Other Instructions: Please see your primary care physician in a week and Urologist in a week. If your symptoms worsen come back to Emergency Room as soon as possible. Take antibiotic-Ciprofloxacin for 7 days, twice a day. Referrals: Felix Hickman MD [Primary Care Provider] - Perfecto Verdugo MD [Staff Physician] - Disposition: HOME - Home Medications Comprehensive Discharge Medication List: Ambulatory Orders Prasugrel HCl [Effient] 10 mg PO DAILY 07/09/16 Simvastatin [Zocor -] 40 mg PO HS 07/09/16 Sitagliptin Phos/Metformin HCl [Janumet Xr 50-1,000 mg Tablet] 1 each PO DAILY 07/09/16 Ciprofloxacin [Cipro -] 500 mg PO Q12H #14 tablet 07/15/16 Metoprolol Tartrate [Lopressor -] 25 mg PO BID #60 tablet 07/15/16 Tamsulosin HCl [Flomax -] 0.4 mg PO DAILY@0830 #30 cap.er.24h 07/15/16 Problem List - Problems (1) UTI (urinary tract infection) Code(s): N39.0 - URINARY TRACT INFECTION, SITE NOT SPECIFIED Qualifiers: Urinary tract infection type: acute cystitis Hematuria presence: without hematuria Qualified Code(s): N30.00 - Acute cystitis without hematuria (2) Urinary retention Code(s): R33.9 - RETENTION OF URINE, UNSPECIFIED (3) CAD (coronary artery disease) Code(s): I25.10 - ATHSCL HEART DISEASE OF [place] CORONARY ARTERY W/O ANG PCTRS (4) Hyperlipidemia Code(s): E78.5 - HYPERLIPIDEMIA, UNSPECIFIED (5) Hypertension Code(s): I10 - ESSENTIAL (PRIMARY) HYPERTENSION (6) Type 2 diabetes mellitus Code(s): E11.9 - TYPE 2 DIABETES MELLITUS WITHOUT COMPLICATIONS (7) Acute prostatitis Code(s): N41.0 - ACUTE PROSTATITIS This patient is new to me today: No Emergency Visit: Yes ED Registration Date: 07/10/16 Care time: The patient presented to the Emergency Department on the above date and was hospitalized for further evaluation of their emergent condition. Critical Care patient: No - Discharge Referral Referred to [facility] Med [facility].C.: No
--- NOTE | 2016-07-15 16:50 | PN ---
Teaching Attending Note Name of Resident: Rupali Gonsalves ATTENDING PHYSICIAN STATEMENT I saw and evaluated the patient. I reviewed the resident's note and discussed the case with the resident. I agree with the resident's findings and plan as documented. Patient is feeling better, with no acute distress, no shortness of breath, no nausea or vomiting. Mild irritation on urination. CBCD WBC 10.0 K/mm3 (4.0-10.0) 07/13/16 05:55 RBC 4.48 M/mm3 (4.00-5.60) 07/13/16 05:55 Hgb 13.1 GM/dL (11.7-16.9) 07/13/16 05:55 Hct 38.3 % (35.4-49) 07/13/16 05:55 MCV 85.5 fl (80-96) 07/13/16 05:55 MCHC 34.2 g/dl (32.0-35.9) 07/13/16 05:55 RDW 13.0 % (11.9-15.9) 07/13/16 05:55 Plt Count 172 K/MM3 (134-434) D 07/13/16 05:55 MPV 9.4 fl (7.5-11.1) 07/13/16 05:55 CMP Sodium 136 mmol/L (136-145) 07/11/16 07:15 Potassium 3.6 mmol/L (3.5-5.1) 07/11/16 07:15 Chloride 102 mmol/L (98-107) 07/11/16 07:15 Carbon Dioxide 24 mmol/L (21-32) 07/11/16 07:15 Anion Gap 10 (8-16) 07/11/16 07:15 BUN 10 mg/dL (7-18) 07/11/16 07:15 Creatinine 0.9 mg/dL (0.7-1.3) 07/11/16 07:15 Creat Clearance w eGFR > 60 (>60) 07/09/16 08:54 Random Glucose 223 mg/dL (74-106) H 07/11/16 07:15 Calcium 8.2 mg/dL (8.5-10.1) L 07/11/16 07:15 Total Bilirubin 0.6 mg/dL (0.2-1.0) D 07/11/16 07:15 AST 26 U/L (15-37) D 07/11/16 07:15 ALT 36 U/L (12-78) D 07/11/16 07:15 Alkaline Phosphatase 111 U/L (45-117) 07/11/16 07:15 Total Protein 6.1 g/dl (6.4-8.2) L 07/11/16 07:15 Albumin 2.9 g/dl (3.4-5.0) L 07/11/16 07:15 Home Medications Medication Instructions Recorded Prasugrel HCl [Effient] 10 mg PO DAILY 07/09/16 Simvastatin [Zocor -] 40 mg PO HS 07/09/16 Sitagliptin Phos/Metformin HCl 1 each PO DAILY 07/09/16 [Janumet Xr 50-1,000 mg Tablet] Ciprofloxacin [Cipro -] 500 mg PO Q12H #14 tablet 07/15/16 Metoprolol Tartrate [Lopressor -] 25 mg PO BID #60 tablet 07/15/16 Tamsulosin HCl [Flomax -] 0.4 mg PO DAILY@0830 #30 cap.er.24h 07/15/16 Microbiology 07/13/16 11:01 Stool Salmonella/Shigella Culture - Preliminary Pseudomonas Species 07/13/16 11:01 Stool Yersinia Culture - Preliminary NO ENTERIC PATHOGENS, 24 HOURS, ON PRIMARY PLATES 07/13/16 11:01 Stool Vibrio Culture - Preliminary NO ENTERIC PATHOGENS, 24 HOURS, ON PRIMARY PLATES 07/13/16 11:01 Stool Escherichia coli 0157 Culture - Preliminary NO ENTERIC PATHOGENS, 24 HOURS, ON PRIMARY PLATES 07/13/16 10:30 Stool Clostridium difficile Antigen (GERMAN) - Final 07/13/16 10:30 Stool Clostridium difficile Toxin Assay - Final 07/09/16 08:26 Urine - Urine Tijer[place] Urine Culture - Final Escherichia Coli ASSESSMENT AND PLAN: This is a 65-year-old man with a history of CAD, type 2 DM, HTN, hyperlipidemia who presented with 3 days of fever, chills and dysuria. # Acute cystitis/ prostatitis with final urinary culture growing E. coli on Rocephin now as per ID. No further fever or chills for the past 24 hrs. discussed with , patient can be discharged home with Ciprofloxicin 500mg po bid x 7 days total of 14 days # Acute Urinary retention s/p [place] catheter ,on Flomax continue ; Outpatient urology follow-up # T2DM Uncontrolled ; HgbA1c is 9.4 , On Metformin,and Seth increased the dose follow up with Primary MD in a week. # Hypertension on Lopressor continue, HR is bradycardic but patient was lying in bed most of the time # Hyperlipidemia on Lipitor continue # CAD, history of stents Continue Lopressor, Lipitor, Effient DVT Px: Effient discharge patient home
== END 2016-07-15 14:34 | disposition home or self-care (01) | DRG 690 ==
LOC: JER 08:11 → JERBED 12:31 → J5S 15:15 → OBSVTOIN 07-10 11:18
PROVIDERS: ADMIT Internal Medicine; ATTEND Internal Medicine
DX: N39.0 Urinary tract infection, site not specified (principal); N41.0 Acute prostatitis; B96.29 Other Escherichia coli [E. coli] as the cause of diseases classified elsewhere; I10 Essential (primary) hypertension; E78.5 Hyperlipidemia, unspecified; I25.10 Atherosclerotic heart disease of native coronary artery without angina pectoris; E11.65 Type 2 diabetes mellitus with hyperglycemia; R33.8 Other retention of urine; Z95.5 Presence of coronary angioplasty implant and graft
CPT/HCPCS: 36415; 71010-TC; 74177-TC; 76775-TC; 76856-TC; 80048; 80053; 80076; 81003; 81015; 82272; 83036; 83605; 85025; 87045; 87046; 87086; 87186; 87324; 87449; 94010; 97116-GP; 97161-GP; 99281-25; G0378

== ENCOUNTER → 2018-07-20 | Emergency (ER) | payer OTHER, MEDICARE ==
[~2018-07-20] MED LIST: morphine CARPU-JECT 4 MG/1 ML DISP.SYRIN IVPUSH ONE; morphine SULFATE 4 MG/ML VIAL ONE
--- NOTE | 2018-07-20 16:50 | PDOC ---
History of Present Illness - General Chief Complaint: Pain, Acute Stated Complaint: FALL Time Seen by Provider: 07/20/18 16:46 - History of Present Illness Initial Comments: 07/20/18 16:49 67m with p,mh of dm, htn, presents to the ed after getting his left foot caught in pothole and falling while twisting his leg. Leg is deformed and patient is in pain. No open fracture. 07/20/18 23:36 Past History - Past Medical History Allergies/Adverse Reactions: Allergies Allergy/AdvReac Type Severity Reaction Status Date / Time No Known Allergies Allergy Verified 07/09/16 08:16 Home Medications: Ambulatory Orders Prasugrel HCl [Effient] 10 mg PO DAILY 07/09/16 Simvastatin [Zocor -] 40 mg PO HS 07/09/16 Sitagliptin Phos/Metformin HCl [Janumet Xr 50-1,000 mg Tablet] 1 each PO DAILY 07/09/16 Metoprolol Tartrate [Lopressor -] 25 mg PO BID #60 tablet 07/15/16 Aspirin [ASA -] 325 mg PO DAILY 07/20/18 Sitagliptin Phosphate [Januvia] 50 mg PO BID 07/20/18 Cardiac Disorders: Yes Diabetes: Yes HTN: Yes - Surgical History Cardiac Surgery: Yes (STENT X 2) Cholecystectomy: Yes - Immunization History Immunization Up to Date: Yes - Suicide/Smoking/Psychosocial Hx Smoking History: Never smoked Have you smoked in the past 12 months: No Hx Alcohol Use: No Drug/Substance Use Hx: No Substance Use Type: None Hx Substance Use Treatment: No Review of Systems - Review of Systems Able to Perform ROS?: Yes Is the patient limited Hungarian proficient: No Constitutional: No: Symptoms Reported HEENTM: No: Symptoms Reported Respiratory: No: Symptoms reported Cardiac (ROS): No: Symptoms Reported ABD/GI: No: Symptoms Reported : No: Symptoms Reported, Testicular Pain Musculoskeletal: Yes: See HPI Integumentary: No: Symptoms Reported Neurological: No: Symptoms reported *Physical Exam - Physical Exam General Appearance: Yes: Nourished, Appropriately Dressed, Apparent Distress, Mild Distress HEENT: positive: EOMI, JADEN, Normal ENT Inspection Respiratory/Chest: positive: Lungs Clear, Normal Breath Sounds. negative: Chest Tender, Respiratory Distress Cardiovascular: positive: Regular Rhythm, S1, S2, Bradycardia Vascular Pulses: Dorsalis-Pedis (R): 2+, Doralis-Pedis (L): 2+ Gastrointestinal/Abdominal: positive: Normal Bowel Sounds Extremity: positive: Other (Deformity of the anterior left leg. tender on palpation. Pulses and sensation intact. ) Integumentary: positive: Normal Color, Dry, Warm Neurologic: positive: Fully Oriented, Alert, Normal Mood/Affect, Normal Response , Motor Strength 5/5 ED Treatment Course - LABORATORY CBC & Chemistry Diagram: 07/20/18 17:17 07/20/18 17:17 - RADIOLOGY Radiology Studies Ordered: Category Date Time Status ANKLE-LEFT [RAD] Stat Radiology 07/20/18 16:48 Ordered KNEE 2 POS-LEFT [RAD] Stat Radiology 07/20/18 16:48 Ordered LEG TIB/FIB-LEFT [RAD] Stat Radiology 07/20/18 16:47 Ordered Medical Decision Making - Medical Decision Making 07/20/18 23:38 Multiple comminuted tib/fib fracture of the shafts. Dr. Barrios, ortho surgeon advised patient trasfer for trauma ortho surgery. Patient given pain control, splinted and transferred to [facility] after speaking to the Orthopedic surgeon attending Asif Oconnell. *DC/Admit/Observation/Transfer Diagnosis at time of Disposition: Tibia/fibula fracture - Discharge Dispostion Disposition: TRANSFER ACUTE CARE/OTHER HOSP - Referrals Referrals: Matt Bolanos [Primary Care Provider] - - Patient Instructions - Post Discharge Activity - Transfer to Acute Care Facility Receiving Facility: [facility] [place] [facility]. Accepting Physician:: RICH
[2018-07-20 16:58] VITALS: BP 176/90; PULSE 59; TEMP 97.6; BMI 29.5
[2018-07-20 22:59] LABS: HEMOGLOBIN 15.2 GM/dL (11.7-16.9); PROTHROMBIN TIME (PATIENT) 11.8 SEC (9.7-13.0); RBC 4.98 M/mm3 (4.00-5.60); WHITE BLOOD COUNT 12.9 K/mm3 (4.0-10.0)
[2018-07-20 23:00] LABS: MCH 30.5 pg (25.7-33.7); MCHC 34.5 g/dl (32.0-35.9); MEAN CELL VOLUME 88.5 fl (80-96); MEAN PLT VOLUME 10.5 fl (7.5-11.1); PLATELET COUNT 182 K/MM3 (134-434); RDW 13.6 % (11.9-15.9)
[2018-07-20 23:01] LABS: BASO % 0.4 % (0-2.0); EOS % 1.4 % (0-4.5); LYMPH % 16.5 % (8-40); MONO % 6.5 % (3.8-10.2); NEUT % 75.2 % (42.8-82.8)
[2018-07-20 23:12] LABS: ALBUMIN 4.2 g/dl (3.4-5.0); ALK PHOS 80 U/L (45-117); ANION GAP 7 MMOL/L (8-16); BILIRUBIN,TOTAL 0.6 mg/dL (0.2-1); BLOOD UREA NITROGEN 14 mg/dL (7-18); CHLORIDE 100 mmol/L (98-107); CO2 26 mmol/L (21-32); CREATININE 1.1 mg/dL (0.55-1.3); GLUCOSE,RANDOM 276 mg/dL (74-106); POTASSIUM 4.3 mmol/L (3.5-5.1); SGOT/AST 20 U/L (15-37); SGPT/ALT 35 U/L (13-61); SODIUM 134 mmol/L (136-145); TOT PROT 7.7 g/dl (6.4-8.2)
[2018-07-20 23:14] LABS: ACTIVATED PTT 26.6 SECONDS (25.2-36.5)
--- NOTE | 2018-07-21 09:40 | PDOC ---
Attending Attestation - Resident Resident Name: Matheus Carter - ED Attending Attestation I have performed the following: I have examined & evaluated the patient, The case was reviewed & discussed with the resident, I agree w/resident's findings & plan, Exceptions are as noted - HPI HPI: NOTE ENTERED AFTER UNSCHEDULED DOWNTIME 07/21/18 09:37 The patient is a 67 year old male with a significant past medical history of hypertension and diabetes who presents to the emergency department after falling today. The patient reports that he was walking outside earlier when his L foot got caught in a pothole. The patient reports that he subsequently fell onto his L side, twisting his leg. Pt now notes severe pain in his L leg. Denies headstrike/LOC. Denies neck pain or back pain. Denies any weakness, dizziness, lightheadedness, headache, CP/SOB prior to or after the fall. - Physicial Exam PE: 07/21/18 09:39 "GENERAL: Awake, alert, and fully oriented, in no acute distress. HEAD: No signs of trauma EYES: PERRLA, EOMI, sclera anicteric, conjunctiva clear ENT: Auricles normal inspection, hearing grossly normal, nares patent, oropharynx clear without exudates. Moist mucosa NECK: Nontender, no stepoffs, Normal ROM, supple, no lymphadenopathy, JVD, or masses LUNGS: Breath sounds equal, clear to auscultation bilaterally. No wheezes, and no crackles HEART: Regular rate and rhythm, normal S1 and S2, no murmurs, rubs or gallops ABDOMEN: Soft, nontender, normoactive bowel sounds. No guarding, no rebound. No masses EXTREMITIES: + deformity distal L tib/fib, no open wounds, distal pulses and sensation intact NEUROLOGICAL: Cranial nerves II through XII intact. 5/5 strength and sensation in all extremities, Normal speech, normal gait, normal cerebellar function SKIN: Warm, Dry, normal turgor, no rashes or lesions noted. - Medical Decision Making 07/21/18 09:40 67 M with L tib/fib fx. No other signs of traumatic injury on exam. - Case discussed with Dr. Barrios, ortho physical education teacher, who recommends transfer to trauma center for trauma ortho evaluation - Pt consented for txfer to [facility]
== END | disposition short-term general hospital (02) ==
LOC: JER 16:39
PROC: 2W3RX1Z Immobilization of Left Lower Leg using Splint (ICD-10-PCS; principal; 2018-07-20)
DX: S82.292A Other fracture of shaft of left tibia, initial encounter for closed fracture (principal); S82.492A Other fracture of shaft of left fibula, initial encounter for closed fracture; W17.89XA Other fall from one level to another, initial encounter; Y93.89 Activity, other specified; Y92.488 Other paved roadways as the place of occurrence of the external cause; Y99.8 Other external cause status; I25.10 Atherosclerotic heart disease of native coronary artery without angina pectoris; I10 Essential (primary) hypertension; Z95.5 Presence of coronary angioplasty implant and graft; E11.9 Type 2 diabetes mellitus without complications; Z79.84 Long term (current) use of oral hypoglycemic drugs
CPT/HCPCS: 29515; 36415; 73590-TC-LT-FY; 73610-TC-LT-FY; 80053; 85025; 85610; 85730; 86850; 86900; 86901; 99284-25